=== PATIENT | male | born 1980 | race Caucasian/White ===

== ENCOUNTER 2019-08-12 13:03 | Inpatient (IN) ==
[2019-08-12 14:39] LABS: INFLUENZA A NEGATIVE (NEGATIVE); INFLUENZA B NEGATIVE (NEGATIVE)
[2019-08-12 15:17] LABS: URINE SOURCE CLEAN CATCH
[2019-08-12 15:18] LABS: ESTIMATED GFR 9
[2019-08-12 15:32] LABS: BILIRUBIN URINE NEGATIVE (NEGATIVE); BLOOD URINE SMALL (NEGATIVE); COLOR YELLOW; GLUCOSE URINE 100 mg/dL (NEGATIVE); KETONE URINE 10 mg/dL (NEGATIVE); LEUKOCYTES URINE NEGATIVE (NEGATIVE); NITRITE URINE NEGATIVE (NEGATIVE); PH URINE 6.5; PROTEIN URINE >600 mg/dL (NEGATIVE); SP GRAVITY URINE 1.017; TURBIDITY URINE HAZY (CLEAR); UR EPITHELIAL CELLS >10 /HPF (<10); URINE BACTERIA NEGATIVE /HPF; URINE WBC 20-40 /HPF (<10); UROBILINOGEN URINE NORMAL (NORMAL)
--- NOTE | 2019-08-12 15:36 | Diag Imaging Result Doc PS360 ---
EXAM: CHEST-PORTABLE INDICATION: Cough TECHNIQUE: One view COMPARISON: None. FINDINGS: The inspiration is suboptimal. No well-defined airspace consolidation is appreciated. There is no discrete pleural fluid collection or pneumothorax. There is cardiomegaly. There may be very mild pulmonary venous congestion. IMPRESSION: Poor inspiration, cardiomegaly, and possible mild pulmonary venous congestion. Electronically signed by Elias Garcia 08/12/2019 3:34 PM
[2019-08-12 16:02] LABS: BASO# 0.02 X1000 (0.0-0.2); BASO% 0.1 % (0.0-0.8); EOS# 0.08 X1000 (0.0-0.7); EOS% 0.2 % (0.0-10.0); HEMATOCRIT 24.6 % (42.0-52.0); IMM GRAN# 0.96 X1000 (0.0-0.04); LYMPH# 1.09 X1000 (1.2-3.4); LYMPH% 3.4 % (20.5-51.1); MCH 29.6 PG (27-31); MCHC 32.5 g/dL (33-37); MCV 91.1 FL (81-99); MONO# 0.62 X1000 (0.11-0.59); MONO% 1.9 % (1.7-9.3); MPV 8.3 FL (7.4-10.4); NEUT# 29.44 X1000 (1.4-6.5); NEUT% 91.4 % (42.2-75.2); PLT 227 X1000 (130-400); RDW 12.2 % (11.5-14.5); WBC 32.21 X1000 (4.8-10.8)
[2019-08-12 16:13] LABS: BANDS 1 % (0-1); LYMPHS 4 % (21-51); MONO 3 % (1-9); SEGS 92 % (42-75)
[2019-08-12 16:17] LABS: AGAP 18; ALKALINE PHOSPHATASE 120 U/L (32-122); BUN 93 mg/dL (8-22); CALCIUM 7.6 mg/dL (8.8-10.2); CHLORIDE 102 mmol/L (98-107); COSMO 299; CREATININE 6.6 mg/dL (0.7-1.2); GLUCOSE 128 mg/dL (70-104); GOT 34 U/L (10-34); GPT 30 U/L (10-44); LIPASE 20 U/L (13-60); POTASSIUM 5.1 mmol/L (3.5-5.1); SODIUM 134 mmol/L (136-145); TCO2 14 mmol/L (25-35); TOTAL BILIRUBIN < 0.15 mg/dL (0.20-1.00); TOTAL PROTEIN 4.9 g/dL (6.3-8.3)
[2019-08-12] MEDS ORDERED: LASIX 100 MG in NS 90 ML IV SCH ×3 (16:32→18:00)
[2019-08-12] MEDS ORDERED: ZOSYN 2.25 GM in NS 50 ML IV SCH ×2 (16:32→23:00)
[2019-08-12] MEDS ORDERED: APRESOLINE IV PRN ×2 (16:36→17:13)
[2019-08-12] MEDS ORDERED: LOPRESSOR IV SCH ×2 (16:45→17:15)
[2019-08-12] MEDS ORDERED: ZOFRAN IV PRN ×2 (16:47→17:16)
[2019-08-12] MEDS ORDERED: PRILOSEC PO SCH ×2 (16:47→17:30)
[2019-08-12 16:59] LABS: CHOLESTEROL 100 mg/dL (0-200); HDL 39 mg/dL (35-55); HEMOGLOBIN A1C 5.8 % (4.8-6.0); IRON SATURATION 13 %; LDL 43 mg/dL; TIBC 188 ug/dL; TOTAL IRON 24 ug/dL (53-167); TRIGLYCERIDES 90 mg/dL (39-160); UNBOUND IRON 164 ug/dL (112-346); VLDL 18 mg/dL
--- NOTE | 2019-08-12 17:23 | HISTORY AND PHYSICAL ---
PRIMARY CARE PHYSICIAN: None. HISTORY OF PRESENT ILLNESS: This is a 39-year-old, male, with past medical history of hypertension and diabetes who has not been any treatment for at least the year who presented to the emergency department complaining of flu-like symptoms. He does not report any sick people around. He also reports some fullness in the abdomen and nausea for a few days. He was feeling general malaise, body achiness. He reported today abdominal pain. He reports mild shortness of breath and also, he reports that he has been getting more swelling. As we mentioned before, he has history of hypertension, diabetes, but according to him he was not able to afford any of those medications, so he is not taking anything. Upon ER evaluation, he was found to have a blood pressure 212/116 with anasarca, so he is going to be admitted for further evaluation and treatment. PAST MEDICAL HISTORY: 1. 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 2. Diabetes mellitus type 2. 3. Uncontrolled hypertension. PAST SURGICAL HISTORY: Right jvyvi-fpn-qmro amputation. SOCIAL HISTORY: The patient lives alone. According to old records, he has a questionable remote history of psychiatric illness. He denies drinking alcohol, smoking tobacco, or using illicit drugs. ALLERGIES: No known drug allergies. HOME MEDICATION: None. FAMILY HISTORY: Noncontributory. REVIEW OF SYSTEMS: Eleven systems were reviewed and all symptoms are related to H P. PHYSICAL EXAMINATION: GENERAL: This is a chronically ill-looking, 36-year-old male, lying in bed, in no acute distress. HEENT: Head is normocephalic, atraumatic. Mucous membranes moist. Very pale conjunctivae. NECK: JVD noted. No carotid bruits. No lymphadenopathy. No thyromegaly. CARDIOVASCULAR: S1, S2 heard. No murmurs, gallops, or rubs. Regular rate and rhythm. RESPIRATORY EXAM: Crackles noted in both pulmonary bases. Patient is not using any accessory muscles or having work of breathing. ABDOMEN: Soft, nontender to palpation. Bowel sounds present. No organomegaly. EXTREMITIES: There is anasarca noted in both upper extremities. The left lower extremity with edema all over up to thigh and there is a right kzskg-mbb-gyzn amputation noted. Peripheral pulses present in the left leg, very faint. NEUROLOGICAL EXAM: Patient alert oriented x3. Moves 4 extremities. LABORATORY DATA: White cell count 32.21, hemoglobin 8.0, hematocrit 24.6, platelets 227,000 with sodium 134. Creatinine 6.6. Calcium 7.6 with proBNP greater than 35,000. Influenza A/B and group strep rapid negative. ASSESSMENT AND PLAN: 1. Abdominal pain. I am not quite sure about why this patient is hurting. The examination disclosed a benign exam. There are no signs of peritoneal irritation. At this point, I prefer to go ahead and do a CT of the chest, abdomen, and pelvis to find out the reason why this patient is septic. His white cell count is very elevated, so we are going to start empiric antibiotics with Zyvox and Zosyn renally dosed. Of course, we are going to consult Dr. Lopez from Nephrology tomorrow. We will provide furosemide drip for this patient for this anasarca. 2. Acute kidney injury. We have checked labs from previous visit for this patient. What we have in 2018 in May was a renal function of 1.3. Actually the renal function also was elevated at the time that he had this amputation and the highest that he reached was 1.9, but that returned to normal totally. So, I think at this point, we are going to do an ultrasound of the abdomen to check the kidneys. We will monitor in's and out's strictly. We will continue to monitor this patient closely. 3. Acute acute kidney injury. Creatinine is very elevated at 6.6, with very low glomerular filtration rate. At this point, we will consult Dr. Lopez from Nephrology. We will start Lasix drip on this patient. We will see how this patient does. 4. Uncontrolled hypertension. Blood pressure has been very elevated on this patient, 212. Apparently, he is depressed and was not interested in breathing any of his conditions either diabetes or hypertension at this point. We will place him on metoprolol 7.5 mg IV q.12 hours and p.r.n. hydralazine. We will continue to monitor this patient closely. 5. Uncontrolled diabetes mellitus. We will check hemoglobin A1c. We will provide insulin sliding scale before meals and also at bedtime. 6. Critical care time in this patient was 39 minute. The patient is going to be transferred to P[facility] unit in [facility]. cc: Mateo Dolan MD
--- NOTE | 2019-08-12 17:24 | Diag Imaging Result Doc PS360 ---
EXAM: CT THORAX/ABD/PELVIS W/O CON INDICATION: elevated WBC, no source of sepsis TECHNIQUE: This exam was performed using automated exposure control, adjustment of mA or kV according to patient size, and/or use of iterative reconstruction technique. COMPARISON: 06/02/2017 FINDINGS: CHEST: There are bilateral lower lobe airspace consolidations consistent with pneumonia, more prominent on the left. There are tree-in-bud opacities bilaterally indicating bronchiolitis. There is no pleural fluid collection and no pneumothorax. The heart appears borderline to mildly prominent but stable. There is no significant pleural effusion and no pneumothorax. Abdomen/pelvis: The liver, gallbladder, spleen, pancreas, adrenal glands, kidneys, and urinary bladder are grossly unremarkable as imaged with unenhanced CT. The appendix is not clearly identified but there is no secondary sign of appendicitis. There is severe body wall anasarca and there is a a fairly small amount of of ascites tracking around the liver, along the paracolic gutters, and in the pelvis. There is no evidence of acute osseous abnormality. IMPRESSION: 1.Bilateral lower lobe patchy airspace consolidation indicating pneumonia, worse on the left. 2.Cardiomegaly. 3.Severe body wall anasarca and small volume ascites. Electronically signed by Elias Garcia 08/12/2019 5:21 PM
[2019-08-12] MEDS: HEPARIN SUBQ SCH (17:51)
[2019-08-12] MEDS ORDERED: MORPHINE IV PRN (19:46)
[2019-08-12 20:11] LABS: INR 1.13; PROTIME 14.6 Seconds (11.0-16.0)
[2019-08-12 20:12] LABS: PTT 29.2 Seconds (22.3-41.8)
[2019-08-12] MEDS: LASIX 100 MG in NS 90 ML IV SCH (20:23)
[2019-08-12] MEDS: ZOFRAN IV PRN (20:24)
[2019-08-12 20:43] LABS: CK INDEX 7.7 (0.0-2.5); CK-MB 17.23 ng/mL (0.0-5.0)
[2019-08-12] MEDS: HUMALOG SUBQ SCH (20:54)
[2019-08-12] MEDS ORDERED: HUMALOG SUBQ SCH (21:00)
[2019-08-12] MEDS: APRESOLINE IV PRN (21:00)
[2019-08-12] MEDS: ZYVOX 600 MG/D5W 600 MG/300 ML IVPB IV SCH (22:07)
[2019-08-12] MEDS: ZOSYN 2.25 GM in NS 50 ML IV SCH (22:42)
[2019-08-12] MEDS: PHENERGAN IV PRN (23:15)
[2019-08-12] MEDS: SODIUM CHLORIDE 0.9% INJ PRN (23:15)
[2019-08-13] MEDS: HEPARIN SUBQ SCH ×2 (04:12→21:27)
[2019-08-13] MEDS: APRESOLINE IV PRN ×2 (04:12→10:48)
[2019-08-13] MEDS: ZOSYN 2.25 GM in NS 50 ML IV SCH ×4 (04:13→21:26)
[2019-08-13] MEDS: LASIX 100 MG in NS 90 ML IV SCH (05:20)
[2019-08-13] MEDS: SODIUM CHLORIDE 0.9% INJ PRN ×2 (05:38→10:12)
[2019-08-13] MEDS: PHENERGAN IV PRN ×2 (05:38→10:12)
[2019-08-13 05:57] LABS: ALLEN TEST YES; BE -10.5 mmoll (-3.0-3.0); BLOOD TYPE ARTERIAL; HCO3-(ACT) 16.7 mmoll (20.0-26.0); METHB 0.5 % (0.0-1.5); O2(CT) 19.3 mL/dL (15.0-23.0); O2HB 96.5 % (95.0-99.0); PCO2(98.6) 32 mmHg (35-45); PO2(98.6) 88 mmHg (60-100); SAMPLE BLOOD; SAO2 100.1 % (95.0-100.0); THB 14.2 g/dL (11.5-17.4); pH(98.6) 7.28 (7.35-7.45)
[2019-08-13 05:59] LABS: MODALITY CANNULA
[2019-08-13] MEDS: HUMALOG SUBQ SCH ×4 (06:23→21:34)
[2019-08-13 07:02] LABS: BASO# 0.03 X1000 (0.0-0.2); BASO% 0.1 % (0.0-0.8); HEMATOCRIT 27.3 % (42.0-52.0); HEMOGLOBIN 8.7 g/dL (14.0-18.0); IMM GRAN# 0.68 X1000 (0.0-0.04); IMM GRAN% 1.7 % (0.0-0.5); LYMPH# 1.52 X1000 (1.2-3.4); LYMPH% 3.7 % (20.5-51.1); MCH 29.4 PG (27-31); MCHC 31.9 g/dL (33-37); MCV 92.2 FL (81-99); MONO# 0.61 X1000 (0.11-0.59); MONO% 1.5 % (1.7-9.3); MPV 9.2 FL (7.4-10.4); NEUT# 38.36 X1000 (1.4-6.5); PLT 291 X1000 (130-400); RBC 2.96 XMIL (4.7-6.1); RDW 12.8 % (11.5-14.5)
[2019-08-13 07:30] LABS: ALBUMIN 2.1 g/dL (3.5-5.0); CALCIUM 7.7 mg/dL (8.8-10.2); MAGNESIUM 1.7 mg/dL (1.5-2.7); PHOSPHORUS 7.9 mg/dL (2.7-4.5); POTASSIUM 5.2 mmol/L (3.5-5.1)
[2019-08-13 08:20] LABS: BANDS 3 % (0-1); LYMPHS 10 % (21-51); MONO 1 % (1-9); SEGS 86 % (42-75)
[2019-08-13 08:21] LABS: ANISOCYTOSIS 1+
--- NOTE | 2019-08-13 08:58 | NEPHROLOGY CONSULTATION ---
DATE: 08/13/2019 REASON FOR CONSULTATION: Renal failure and volume overload. HISTORY OF PRESENT ILLNESS: Mr. Patel is a 39-year-old, white male with diabetes and hypertension, complicated by peripheral vascular disease and right BKA. He states he lives in the "[facility]," and he does not access medical care routinely. He does not take any medications for his diabetes or hypertension, stating that he has difficulty with acquisition because of finances. 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 He has been dealing with increasing swelling for many months. He ultimately came to the hospital because of nausea and vomiting and abdominal discomfort. These things have been present for several days, and he does have some tenderness in the epigastrium, as well as a sore throat. No chills, fevers, sweats, night sweats. He states he does have shortness of breath with any exertion. Mild shortness of breath just walking from one room to the other. No diarrhea. No voiding symptoms. To his knowledge, he does not have retinopathy. No heart disease. Again, untreated hypertension. PAST MEDICAL HISTORY: As above. MEDICATIONS: None. ALLERGIES: None. SOCIAL HISTORY: As above. No alcohol or tobacco. Lives alone. FAMILY HISTORY: Negative for kidney disease. REVIEW OF SYSTEMS: Noncontributory. PHYSICAL EXAMINATION: Vital Signs: Blood pressure 147/71, heart rate 93, respirations 20, afebrile. General: A somewhat disheveled, young man, but in no acute distress. Skin: Warm and dry. HEENT: Conjunctivae are pink and moist. Pupils are equal. Oropharynx is clear. Normal tongue. Poor dentition. Neck: Supple, and trachea is midline. Jugular venous distention and hepatojugular reflux are present. Heart: PMI is displaced and enlarged. Auscultation demonstrates a regular rhythm with S4 gallop. Lungs: Equal breath sounds. No crackles or wheezes. Abdomen: Soft and minimally tender in the epigastrium. No guarding or rebound. No organomegaly is palpable. No bruits. Extremities: There is 4+ edema extending up onto the forearms. Right BKA. Intact dorsalis pedis pulse on the left. Neurologic: Grossly nonfocal. IMPRESSION: Renal failure, most likely chronic and stage 5. He appears volume expanded based on edema and neck vein distention. Will aggressively treat with diuretic therapy. Quantify urine protein. Imaging. Observe renal function. Manage blood pressure and diabetes. I counseled the patient that he likely has end-stage kidney disease, for which renal replacement therapy may be necessary. Will follow with you. cc: Main Lopez MD
[2019-08-13] MEDS: ZYVOX 600 MG/D5W 600 MG/300 ML IVPB IV SCH ×2 (09:36→21:26)
[2019-08-13] MEDS: ZAROXOLYN PO SCH (10:08)
[2019-08-13] MEDS: LASIX IV SCH ×2 (10:08→21:26)
--- NOTE | 2019-08-13 10:24 | CARDIOLOGY CONSULTATION ---
DATE: 08/13/2019 CHIEF COMPLAINT ON PRESENTATION: Nausea, vomiting, recent onset of flu-like symptoms including cough, shortness of breath and myalgias. HISTORY OF PRESENT ILLNESS: Mr. Patel is a 39-year-old gentleman with a history of hypertension, diabetes, and a previous right BKA. Around a week ago, he reported he had flu- like symptoms with subjective fevers and chills and myalgias. The patient did not seek care for this. Subsequently over the last several days, he has had nausea and vomiting with difficulty keeping any solid food down, but he reports being able to tolerate liquids. He vomited twice during the course of my evaluation. The patient reports discomfort in his epigastric area that he describes as burning. He has no exertional component associated with this. He has no chest pain presently. PAST MEDICAL HISTORY: Significant for: 1. Diabetes. 2. Hypertension. 3. Right-sided BKA secondary to gas gangrene in 2016. SOCIAL HISTORY: No tobacco or alcohol. No illicit drugs. He lives alone. He is not aware of any recent sick contacts or any foreign travel. FAMILY HISTORY: Significant for hypertension. REVIEW OF SYSTEMS: A 10 system review of systems is negative, except for those things mentioned in the HPI. PHYSICAL EXAMINATION: Vital Signs: He is afebrile. His heart rate has been in the 80s to 90s more recently. Blood pressure 147/71. Generally: He is an ill-appearing white male in no acute distress. HEENT: Oropharynx is moist. He has poor dentition. His eye examination is pink conjunctivae, white sclerae. Neck: Examination shows no obvious thyromegaly or thyroid tenderness. Cardiovascular: He is in a regular rate and rhythm. I do not hear any obvious murmurs. He has no S3. Chest exam: Sounds relatively clear, but it was a difficult examination with the patient having a difficult time taking a deep breath, as well as poor examination with the isolation stethoscope. Abdomen: Soft, nontender. No obvious organomegaly. Skin: Exam is warm and dry throughout. No obvious rashes. Neurological: He is moving all extremities well. He has no lateralizing deficits. PERTINENT DATA: His white count is 32 on presentation. Presently it is 41. His hematocrit is 27. His platelet count is 291. He has a slight bandemia with a left shift. His pH is 7.28 with a pCO2 of 32, PO2 of 88 on an FiO2 of 28%. He has an AA gradient of 72. His sodium is 137, his potassium 5.2. His BUN and creatinine is 92 and 6.0; yesterday was 93 and 6.6. In May 2017 his creatinine was 1.3. His Mag level is 1.7, his ferritin is 642, his proBNP is greater than 35,000. His albumin level today is 2.1. His MB is 17.2 with an index of 7.7. His troponin has been flat and elevated with an initial check of 176 at 1952 hours yesterday, subsequent check of 179 at 0533 hours this morning. His TSH is 2.29. I do not have an EKG on the chart on the patient. ASSESSMENT: Mr. Patel is a 39-year-old gentleman, who presented with the above- listed symptoms, elevated white count, flu-like symptoms occurring within the last week, shortness of breath, bilateral infiltrates, new onset renal failure, minimal flat elevations in his troponin. PLAN: At this point, we will review his echo, check an EKG. He has been administered diuretics by Nephrology. COVID-19 testing is pending. At this point, I would not recommend an ischemic evaluation until all testing is back. Most likely the troponin elevation is related to his renal insufficiency and volume overload as well as possible ongoing sepsis. Again, we will follow up on his testing, his echocardiogram and check an EKG. cc: William Edmondson MD MTDD
--- NOTE | 2019-08-13 10:34 | EKG Report ---
Test Performed on : 08/13/2019 10:27:32 AM Test Reason : troponin elevation Blood Pressure : / mmHG Vent. Rate : 102 BPM Atrial Rate : 102 BPM P-R Int : 152 ms QRS Dur : 094 ms QT Int : 350 ms P-R-T Axes : 049 -08 054 degrees QTc Int : 456 ms Sinus tachycardia. Possible Left atrial enlargement Nonspecific ST abnormality Abnormal ECG When compared with ECG of 11-NOV-2015 17:57, Non-specific change in ST segment in Anterior leads Confirmed by Adal Soto MD ([id number]) on 08/14/2019 2:50:48 PM
--- NOTE | 2019-08-13 10:52 | SEPSIS: TISSUE PERFUSION ASSMT ---
Sepsis: Tissue Perfusion Assmt - Physical Exam Assessment Date: 08/13/19 Time Assessment Initialized: 10:45 Vital Signs: Last Vital Signs Temp 97.5 F L 08/13/19 08:00 Pulse 93 H 08/13/19 08:00 Resp 20 08/13/19 08:00 BP 147/71 08/13/19 08:00 Pulse Ox 98 08/13/19 08:46 Height 5 ft 10 in Weight 102.285 kg Lung Sounds: crackles Heart Sounds: Regular Capillary Refill Time: Less Than 2 Seconds Peripheral Pulse Evaluation: radial (R): 2+, radial (L): 2+, dorsalis-pedis (R): 0, dorsalis-pedis (L): 2+, posterior tibialis (R): 0, posterior tibialis (L): 2+ Skin Exam: pink - Alternative Fluid Bolus Bolus Option: Alternative Fluid Resuscitation Bolus for morbidly obese patients with a BMI >30, Refer to [facility] [place] Body Weight Chart for Reference. Is patient's BMI >30?: No Fluid Bolus dosed using the [place] Body Weight Chart: No - Impression Impression: Tissue Perfusion Adequate (Patient has right below knee amputation. He is in volume overload. So bolus not given.)
--- NOTE | 2019-08-13 11:19 | PROGRESS NOTE ---
DATE: 08/13/2019 INTERVAL HISTORY: Mr. Patel was transferred to isolation room for suspected COVID-19. COVID-19 testing has already been ordered by Cardiology team. SUBJECTIVE: Mr. Patel is complaining of chest discomfort, which is located in the center of the chest, upper abdomen region, which is burning like. He continues to have vomiting, occasional cough. He denies abdominal pain as such. REVIEW OF SYSTEMS: Positive for vomiting. Positive for nausea. Positive for epigastric/lower chest region discomfort. Positive for low appetite. OBJECTIVE: Vital Signs: Temperature of 97.5 degrees, pulse 93, respiratory rate 20, blood pressure 147/71, saturating 100% on nasal cannula. General: He does not appear in acute distress. HEENT: Oral cavity is dry. There is conjunctival pallor. No cyanosis, clubbing, or icterus. Lungs: Air entry bilaterally equal. No wheeze or rhonchi. He has crackles to bilateral infrascapular region. Cardiovascular: S1, S2 normal. No murmur or gallop. Abdomen: Soft. Mild epigastric discomfort. Otherwise nontender. No hepatosplenomegaly. He has ascites in bilateral flanks. Active bowel sounds. Extremities: He has left lower extremity edema, extending up to knee level. He has a right below-knee amputation, and there is a superficial ulcer over the stump, about 2.5 cm diameter. LABORATORY DATA: WBC 41,000, hemoglobin 8.7, platelets 291,000. He has mild metabolic acidosis with mild elevation of anion gap. He also has low bicarbonate. MICROBIOLOGY: No new data so far. ASSESSMENT AND PLAN: 1. Sepsis due to bilateral lower lobe pneumonia with history of methicillin-resistant staphylococcus aureus and Acinetobacter wound infection. Continue intravenous linezolid and intravenous Zosyn. Follow up sputum culture, urine streptococcal antigen, and blood culture results. Due to suspicion of Coronavirus Disease 2019, Coronavirus Disease 2019 testing has been ordered by Cardiology team. I will keep the patient on airborne and contact isolation precautions. 2. Acute kidney injury with volume overload leading to anasarca and ascites. Continue intravenous Lasix as per Nephrology recommendation. His current kidney dysfunction could be related to hypertensive emergency. He could also have chronic kidney disease due to uncontrolled hypertension, for which he was not compliant with treatment. He is also on oral metolazone. Follow up ultrasound renal, retroperitoneal. 3. Hypertensive emergency, likely because of not being able to take blood pressure medications due to cost issues, as well as noncompliance. Cardiology team on board. His troponin has been showing flat trend. Will follow up with echocardiogram results. I will start him on intravenous antihypertensive medications. I will keep him on intravenous hydralazine as needed. Currently, blood pressure is well controlled. 4. History of diabetes mellitus. His hemoglobin A1c is normal, which could also be falsely normal in the setting of chronic kidney disease. I will keep his blood sugar in check with sliding scale insulin. 5. Normocytic anemia. I will follow up with iron panel. He does not have any acute need for transfusion. 6. Disposition. 35 minutes have been spent in taking care of this patient. Plan of care was extensively discussed with him. He asked me if he had cholecystitis. However, on my examination, his Pierre's sign was negative, and CT scan of the abdomen and pelvis did not detect any gallbladder abnormality. cc: Hudson Perez MD
[2019-08-13 14:22] LABS: UR CREAT RANDOM 47.2 mg/dL (14-26)
[2019-08-14] MEDS: ZOSYN 2.25 GM in NS 50 ML IV SCH ×5 (00:04→21:03)
--- NOTE | 2019-08-14 00:15 | ECHO REPORT ---
ORDER DATE: 08/12/2019 MEASUREMENTS: Septal thickness 1.3, left ventricular internal diameter in diastole 5.9, posterior wall thickness 1.3. Aortic root 3.7, left atrium 4.7. SUMMARY: 1. Adequate quality study. 2. Aortic valve is trileaflet and opens normally on 2-dimensional images. Peak gradient across the aortic valve is less than 10 mmHg. Mitral, tricuspid, and pulmonic valves are without evidence of structural abnormality. There is trace mitral regurgitation. The aortic root is normal in size. 3. Borderline left ventricular enlargement with mild concentric left hypertrophy is demonstrated. Estimated ejection fraction approximately 55%. No focal wall motion abnormality can be appreciated. Left atrium is iovy-cj-mzxmscazik enlarged. The right atrium and right ventricle are normal size with normal right ventricular systolic function. 4. No pericardial effusion. 5. Appearance of inferior vena cava suggests normal central venous pressure. CONCLUSIONS: 1. No significant valvular abnormality. 2. Borderline left ventricular enlargement with mild concentric left hypertrophy and estimated left ejection fraction approximately 55%. 3. Mild to moderate left atrial enlargement. cc: MD Mateo Mistry MD
[2019-08-14] MEDS: APRESOLINE IV PRN ×2 (05:45→11:11)
[2019-08-14] MEDS: HUMALOG SUBQ SCH ×4 (06:23→21:55)
[2019-08-14 07:21] LABS: BASO# 0.01 X1000 (0.0-0.2); EOS# 0.04 X1000 (0.0-0.7); EOS% 0.1 % (0.0-10.0); HEMATOCRIT 23.9 % (42.0-52.0); HEMOGLOBIN 7.6 g/dL (14.0-18.0); IMM GRAN# 0.19 X1000 (0.0-0.04); IMM GRAN% 0.6 % (0.0-0.5); LYMPH# 0.94 X1000 (1.2-3.4); LYMPH% 2.9 % (20.5-51.1); MCH 29.2 PG (27-31); MCHC 31.8 g/dL (33-37); MCV 91.9 FL (81-99); MONO# 0.61 X1000 (0.11-0.59); MONO% 1.9 % (1.7-9.3); MPV 8.8 FL (7.4-10.4); NEUT% 94.5 % (42.2-75.2); PLT 259 X1000 (130-400); RDW 12.7 % (11.5-14.5); WBC 31.89 X1000 (4.8-10.8)
[2019-08-14 07:34] LABS: ALBUMIN 1.6 g/dL (3.5-5.0); CALCIUM 7.6 mg/dL (8.8-10.2); CREATININE 6.6 mg/dL (0.7-1.2); MAGNESIUM 1.7 mg/dL (1.5-2.7); PHOSPHORUS 7.9 mg/dL (2.7-4.5); POTASSIUM 4.2 mmol/L (3.5-5.1)
[2019-08-14 07:38] LABS: LYMPHS 5 % (21-51); MONO 1 % (1-9); SEGS 94 % (42-75)
[2019-08-14 07:48] LABS: FERRITIN 595 ng/mL (30-400)
[2019-08-14] MEDS: ZAROXOLYN PO SCH (08:47)
[2019-08-14] MEDS: HEPARIN SUBQ SCH ×2 (08:47→21:03)
[2019-08-14] MEDS: LASIX IV SCH ×2 (08:47→21:03)
[2019-08-14] MEDS: ZYVOX 600 MG/D5W 600 MG/300 ML IVPB IV SCH ×2 (09:10→21:03)
[2019-08-14] MEDS: PHENERGAN IV PRN ×2 (09:17→16:18)
[2019-08-14] MEDS: ZOFRAN IV PRN (11:04)
[2019-08-14] MEDS: ALBUMIN 25% IV SCH (11:33)
[2019-08-14 12:22] LABS: C REACTIVE PROT QUANT 16.45 mg/L (0.00-5.00)
[2019-08-14 12:30] LABS: CALCIUM 7.4 mg/dL (8.8-10.2)
--- NOTE | 2019-08-14 13:01 | PROGRESS NOTE ---
DATE: 08/14/2019 SUBJECTIVE: This morning Mr. Patel refers to be doing well. Denies any new complaints. Still remarkably volume overloaded with some shortness of breath and he is still coughing. OBJECTIVE: Vital Signs: Blood pressure is 176/78, pulse of 100, respirations 16, temperature is 98.1 degrees. The patient is saturating 97% on room air. General: Mr. Patel is a 39-year-old gentleman. He is in bed, in no distress. Mucosa is pink and moist. Anicteric. Acyanotic. Neck: Supple. Chest: Air entry is bilaterally reduced. There are still some crackles bilaterally in the posterior lung mac. Cardiovascular: Regular rate and rhythm. There are no murmurs. No rubs, no gallops. Gastrointestinal: The abdomen is soft, is distended, but nontender. There is some edema on the lateral aspect of the abdominal wall laterally. Extremities: The patient has a prosthetic limb on the right with a BKA. The left lower extremity has about 3+ pedal edema. Input and Output: The patient's input and output, urine output was 1500. He is currently negative balance of 127. LABORATORY DATA: WBC is up to 31.89, hemoglobin is 7.6, platelet count of 259,000. Chemistry is also reviewed. Sodium is 133, potassium is 4.5, bicarbonate of 15, creatinine is 6.6. C-reactive protein is slightly elevated, but not terrible. Troponins are elevated. The patient denies any chest pain at this point. IMAGING STUDIES: Have all been reviewed. ASSESSMENT AND PLAN: 1. Fluid overload, most likely due to a combination of renal failure and congestive heart failure with preserved ejection fraction. 2. Renal failure, most likely stage 5 from longstanding uncontrolled hypertension and diabetes mellitus. 3. Significant proteinuria, presumably with suspicion of nephrotic range proteinuria. We will get a 24-hour urine to determine both ejection fraction as well as renal protein excretion. 4. Hypertensive emergency. Patient is on medications. We will continue to titrate. 5. Diabetes mellitus. 6. Normocytic anemia, most likely from longstanding renal disease. 7. Mild gap metabolic acidosis, most likely related to the degree of the renal failure. 8. Elevated troponins and elevated pro-BNP concerning for possible cardiopathy in the setting of longstanding renal failure. Cardiology has been consulted. 9. Bilateral lower lobe infiltrates in the setting of flu-like symptoms. There is concern for Coronavirus Disease 2019. We are still waiting on the result. Patient continues to be in isolation. cc: Lennox Doan MD
--- NOTE | 2019-08-14 17:53 | NEPHROLOGY PROGRESS NOTE ---
DATE: 08/14/2019 SUBJECTIVE: He was moved to isolation because of the abnormal CT and history of fever. He is still coughing some though not in my presence. OBJECTIVE: Vital Signs: Blood pressure 170/81, heart rate 98, respirations 16, afebrile. General: No acute distress. Skin: Warm and dry. Neck: Neck veins are distended. Trachea is midline. Heart: Regular with a gallop. Lungs: Equal. No crackles. Abdomen: Soft, nontender. Extremities: Have 3+ edema. No clubbing or cyanosis. IMPRESSION: 1. Volume overload. Complex of proteinuria, diastolic heart failure, stage 5 chronic kidney disease. I will add albumin to his furosemide and metolazone and observe his response over the next 48 hours. If he fails this therapy, then we will have to consider renal replacement therapy. Unfortunately, he has very limited resources, which will make it difficult for him to be a compliant dialysis patient. I will begin binder therapy and sodium bicarbonate. By our standards, he is iron deficient, so I will treat that. cc: Main Lopez MD
[2019-08-14] MEDS: SODIUM BICARBONATE PO SCH (23:31)
[2019-08-15] MEDS: ZOSYN 2.25 GM in NS 50 ML IV SCH ×4 (04:16→21:44)
[2019-08-15] MEDS: HUMALOG SUBQ SCH ×4 (07:38→21:45)
[2019-08-15 08:39] LABS: BASO# 0.01 X1000 (0.0-0.2); BASO% 0.1 % (0.0-0.8); EOS# 0.07 X1000 (0.0-0.7); EOS% 0.4 % (0.0-10.0); HEMATOCRIT 22.3 % (42.0-52.0); IMM GRAN# 0.07 X1000 (0.0-0.04); IMM GRAN% 0.4 % (0.0-0.5); LYMPH# 1.17 X1000 (1.2-3.4); MCH 28.6 PG (27-31); MCHC 31.4 g/dL (33-37); MONO# 0.52 X1000 (0.11-0.59); MONO% 3.1 % (1.7-9.3); NEUT# 14.89 X1000 (1.4-6.5); PLT 237 X1000 (130-400); RBC 2.45 XMIL (4.7-6.1); RDW 12.8 % (11.5-14.5); WBC 16.73 X1000 (4.8-10.8)
[2019-08-15] MEDS ORDERED: NS 500 ML IV ONE ×2 (08:46→08:47)
[2019-08-15 08:55] LABS: EOS 1 % (1-10); LYMPHS 6 % (21-51); MONO 2 % (1-9); SEGS 91 % (42-75)
[2019-08-15 08:56] LABS: LARGE PLATELETS OCCASIONAL; SCHISTOCYTES OCCASIONAL
[2019-08-15 09:06] LABS: CALCIUM 7.3 mg/dL (8.8-10.2); CREATININE 6.3 mg/dL (0.7-1.2); MAGNESIUM 1.7 mg/dL (1.5-2.7); PHOSPHORUS 8.4 mg/dL (2.7-4.5)
[2019-08-15] MEDS: ZAROXOLYN PO SCH (09:43)
[2019-08-15] MEDS: HEPARIN SUBQ SCH ×2 (09:43→21:44)
[2019-08-15] MEDS: SODIUM BICARBONATE PO SCH ×2 (09:43→21:44)
[2019-08-15] MEDS: LASIX IV SCH (09:48)
[2019-08-15] MEDS: ALBUMIN 25% IV SCH (09:49)
[2019-08-15] MEDS: ZYVOX 600 MG/D5W 600 MG/300 ML IVPB IV SCH ×2 (09:53→21:44)
[2019-08-15] MEDS: APRESOLINE IV PRN ×2 (10:04→14:16)
--- NOTE | 2019-08-15 11:43 | PROGRESS NOTE ---
DATE: 08/15/2019 SUBJECTIVE: I have seen and examined Mr. Patel today. Mr. Patel refers to be doing fair. No new complaints. OBJECTIVE: Current vitals: Blood pressure is 183/81, pulse of 90, respirations 18, temperature 98.1 degrees. General: Mr. Patel is a 39-year-old gentleman. He is in bed. He is not in any cardiopulmonary distress. HEENT: Mucosa is pink and moist. Anicteric. Acyanotic. Neck: Supple. Still positive JVD. Chest: Air entry is bilaterally reduced. There are some diffuse wet crackles in the posterior lung mac. Cardiovascular: Regular rate and rhythm. No murmurs, no rubs, no gallops. GI: The abdomen is soft, it is distended. There is edema on the lateral aspect of the abdominal wall. Extremities: The patient has a BKA on the right. The left has 3+ pedal edema. DRUM CLEANER: The patient is awake, alert, follows commands. INS AND OUTS: Urine output was 3,150, currently negative balance of 1,697. LABORATORY DATA: Laboratory data has also been reviewed. WBC is down to 16.73, hemoglobin is down to 7.0, platelet count of 237,000, no bands on the peripheral smear. Chemistry is also reviewed with fairly stable numbers, with a creatinine of 6.3. MEDICATIONS: Medications have all been reviewed. No changes to the current regimen. ASSESSMENT: 1. Fluid overload, most likely due to renal failure compounded with possible congestive heart failure with preserved ejection fraction. The patient continues to be on a diuretic regimen. 2. Renal failure, presumably CKD stage 5, from long-standing uncontrolled diabetes mellitus and hypertension. 3. Significant proteinuria, suspicious for nephrotic range proteinuria from diabetic nephropathy. The patient is going through a 24-hour urine collection for quantification purposes. 4. Hypertensive emergency. The patient is on medication. We will continue to titrate. Blood pressure levels are trending down. 5. Diabetes mellitus. Continue with insulin regimen. 6. Normocytic anemia due to chronic disease. The patient's hemoglobin has gone down to 7. We are going to group and crossmatch and transfuse him a unit of PRBC. His iron studies have already been checked and they all seem to be within normal range. 7. Mild metabolic acidosis secondary to renal failure. 8. Elevated troponins and BNP concerning for underlying cardiomyopathy in the setting of longstanding renal failure. Cardiology is on board. 9. Bilateral lower lobe infiltrate in the setting of flu-like symptoms. This is concerning for COVID-19. We are still pending the laboratory tests. The patient is on antimicrobial coverage for now. PLAN: In general, Mr. Patel is fairly stable. We will continue with the current antimicrobial coverage. We will get him in a unit of PRBC transfusion. We are pending the results for the 24- hour urine collection, and will follow up with further recommendations from the subspecialties involved. The patient is still on large doses of diuretic therapy. cc: Lennox Doan MD Addendum: COVID-19 test reported negative. Discontinue isolation. Continue with rest of management. MTDD
[2019-08-15 11:52] LABS: ANTINEUTROPHIL CYTOPLASMIC AB SEE COMMENTS
[2019-08-15 12:43] LABS: UR CREATININE 29.8 mg/dL (14-26)
[2019-08-15 12:53] LABS: UR PROTEIN 295.5 mg/dL
[2019-08-15 12:55] LABS: CREATININE 6.3 mg/dL (0.7-1.2)
[2019-08-15] MEDS: PHENERGAN IV PRN (13:35)
[2019-08-15] MEDS ORDERED: KLOR-CON PO ONE (17:18)
--- NOTE | 2019-08-15 18:38 | NEPHROLOGY PROGRESS NOTE ---
DATE: 08/15/2019 SUBJECTIVE: He is lying in bed. Still having nausea, vomiting, and diarrhea. Questionable melena. Urine output has been improved. OBJECTIVE: Vital Signs: Blood pressure 177/78, heart rate 89, respirations 16, afebrile. Intake 1.6 L. Output 3.2 L. General: No acute distress. Skin: Warm and dry. Neck: Neck veins are distended. Heart: Regular with a murmur. Lungs: Equal. No crackles. Abdomen: Soft, nontender. Bowel sounds are present. Extremities: There is 3+ edema. No clubbing or cyanosis. IMPRESSION: Chronic kidney disease stage 5. Likely will require dialysis. No acute indications for dialysis, however. He is responding well to diuretics plus albumin. We will continue this therapy. cc: Main Lopez MD
[2019-08-15] MEDS: LASIX 200 MG in NS 25 ML IV SCH (21:44)
[2019-08-16] MEDS: ZOSYN 2.25 GM in NS 50 ML IV SCH ×4 (03:59→21:32)
[2019-08-16] MEDS: HUMALOG SUBQ SCH ×4 (06:13→20:46)
[2019-08-16 06:29] LABS: HEMATOCRIT 22.5 % (42.0-52.0); HEMOGLOBIN 7.4 g/dL (14.0-18.0); MCH 29.8 PG (27-31); MCHC 32.9 g/dL (33-37); MCV 90.7 FL (81-99); MPV 8.8 FL (7.4-10.4); RBC 2.48 XMIL (4.7-6.1); RDW 12.7 % (11.5-14.5); WBC 17.33 X1000 (4.8-10.8)
[2019-08-16 07:29] LABS: ALBUMIN 2.4 g/dL (3.5-5.0); CREATININE 6.8 mg/dL (0.7-1.2); PHOSPHORUS 7.3 mg/dL (2.7-4.5); POTASSIUM 2.8 mmol/L (3.5-5.1)
[2019-08-16 07:45] LABS: CALCIUM 6.6 mg/dL (8.8-10.2)
[2019-08-16] MEDS ORDERED: ZOSYN ONE (08:14)
[2019-08-16] MEDS: ALBUMIN 25% IV SCH (08:50)
[2019-08-16] MEDS: COREG PO SCH ×2 (08:51→20:46)
[2019-08-16] MEDS: SODIUM BICARBONATE PO SCH ×2 (08:51→20:46)
[2019-08-16] MEDS: HEPARIN SUBQ SCH ×2 (08:51→20:46)
[2019-08-16] MEDS: APRESOLINE PO SCH ×3 (08:51→20:46)
[2019-08-16] MEDS: ZAROXOLYN PO SCH (08:51)
[2019-08-16] MEDS: NORVASC PO SCH ×2 (08:51→20:46)
[2019-08-16] MEDS: ZYVOX 600 MG/D5W 600 MG/300 ML IVPB IV SCH ×2 (10:12→21:32)
[2019-08-16] MEDS: LASIX 200 MG in NS 25 ML IV SCH ×2 (10:12→20:46)
--- NOTE | 2019-08-16 10:21 | PROGRESS NOTE ---
DATE: 08/16/2019 SUBJECTIVE: This morning Mr. Patel refers to be doing well. No new complaints. He denies any nausea or vomiting, no chest pain, and he said his breathing is better. OBJECTIVE: Vital Signs: Blood pressure is still 191/91, pulse of 98, respiration is 12, temperature is 98.6 degrees. The patient is saturating 97% on room air. General: Mr. Patel is a 39-year-old gentleman. He is in bed, no cardiopulmonary distress. HEENT: Mucosa is pink and moist. Anicteric. Acyanotic. Neck: Supple. Mild JVD. There is also a right EJ in place. Respiratory System: Air entry was bilaterally reduced. There are still diffuse wet crackles in the posterior lung mac. Cardiovascular: Regular rate and rhythm. No murmurs, no rubs, no gallops. Gastrointestinal: The abdomen is soft, it is distended. There is edema on the lateral aspect of the abdominal wall. There is Hopkins catheter in place. Scrotum is also swollen. Extremities: There is a right BKA. Left lower extremity has 3+ pedal edema. Central Nervous System: Patient is awake, alert, and oriented. LABORATORY DATA: WBC is 17.33, hemoglobin is 7.4, platelet count of 194,000. Chemistry is also reviewed. Creatinine is 6.8. Input and output, urine output was 3075. The patient is currently negative balance of 4437. The patient current weight is 217. He was 225 on the , so he has lost about 8 pounds during the hospital course. The 24 urine sampling did show a creatinine clearance of 13. The patient has a total protein 24 hour urine clearance excretion of 11gm, so extremely nephrotic. CURRENT MEDICATIONS: Have all been reviewed. He continues to be on Lasix to 200 mg IV every 12 hours, metolazone 10 mg p.o. daily, Zosyn 2.25 every 6 hours and today is day 4. Albumin has been discontinued. ASSESSMENT: 1. Fluid overload secondary to combination of renal failure, congestive heart failure with preserved ejection fraction and nephrotic syndrome. The patient continues to be on diuretic therapy. 2. Chronic kidney disease stage 5. The patient continues to be fairly stable on medical management. We will continue to follow further recommendations from Nephrology. 3. Nephrotic range proteinuria, presumably from diabetic nephropathy. Currently patient is not on any LINA or ARBs. We have started him on amlodipine, which will also provide some form of renal protection. We will defer the initiation of ARB or LINA to Nephrology. 4. Hypertensive emergency on admission. The patient is fairly stable. Blood pressure continues to be high. We started him this morning on carvedilol and amlodipine on top of the hydralazine for better blood pressure control. 5. Diabetes mellitus, stable. 6. Anemia of chronic disease. The patient is status post 1 packed red blood cell transfusion yesterday. Hemoglobin just barely went up to 7.3. We are pending a stool sample for occult blood testing. If that is positive, we will surely engage gastrointestinal as well. For now, Mr. Patel does not seems to show any obvious sign of ongoing gastrointestinal blood loss. 7. Mild metabolic acidosis secondary to renal failure. The patient is on bicarbonate therapy. 8. Elevated troponin and BNP concerning for underlying cardiomyopathy in the setting of longstanding renal failure. The patient also has multiple core comorbidities and risk factors for heart disease. Cardiology is on board. 9. Bilateral lower lobe infiltrate. The patient's Coronavirus Disease 2019 testing was negative. He is being treated for possible bacterial pneumonia. We will continue with the current antimicrobial coverage. SUMMARY: So in general, I think Mr. Patel is fairly stable. He is hemodynamically stable. Blood pressures are still high. We started him on medications and continue to titrate these. We are going to transfer him from the Critical Care Unit to the renal floor and continue with his management. cc: MD DENIS Menjivar
--- NOTE | 2019-08-16 13:54 | NEPHROLOGY PROGRESS NOTE ---
DATE: 08/16/2019 SUBJECTIVE: He is sitting up in the bed. Still states he does not feel well. Swelling is improving, however. OBJECTIVE: Vital Signs: Blood pressure 169/83, heart rate 86, respirations 16, afebrile. Intake 1.2 L. Output 4 L. General: In no distress. Extremities: 2+ edema. IMPRESSION: 1. Chronic kidney disease stage 5. Little change thus far. Likely uremic but we are attempting to manage his volume status before making a decision about uremia management. 2. Volume overload. Improving with diuretics and albumin. We will continue this regimen. cc: Main Lopez MD
[2019-08-17] MEDS: ZOSYN 2.25 GM in NS 50 ML IV SCH ×4 (04:48→21:03)
[2019-08-17] MEDS: APRESOLINE PO SCH ×3 (04:48→21:02)
[2019-08-17 05:09] LABS: HEMOGLOBIN 7.3 g/dL (14.0-18.0); MCH 30.4 PG (27-31); MCHC 33.2 g/dL (33-37); MCV 91.7 FL (81-99); MPV 9.2 FL (7.4-10.4); RBC 2.4 XMIL (4.7-6.1); RDW 12.7 % (11.5-14.5); WBC 14.92 X1000 (4.8-10.8)
[2019-08-17 05:38] LABS: ALBUMIN 2.5 g/dL (3.5-5.0); CALCIUM 6.8 mg/dL (8.8-10.2); CREATININE 6.6 mg/dL (0.7-1.2); PHOSPHORUS 7.2 mg/dL (2.7-4.5); POTASSIUM 2.5 mmol/L (3.5-5.1)
[2019-08-17] MEDS ORDERED: KLOR-CON PO ONE ×2 (05:51→08:30)
[2019-08-17] MEDS: HUMALOG SUBQ SCH ×4 (06:02→21:59)
[2019-08-17] MEDS: COREG PO SCH ×2 (08:38→21:01)
[2019-08-17] MEDS: ALBUMIN 25% IV SCH (08:38)
[2019-08-17] MEDS: SODIUM BICARBONATE PO SCH ×2 (08:38→21:02)
[2019-08-17] MEDS: NORVASC PO SCH ×2 (08:38→21:02)
[2019-08-17] MEDS: HEPARIN SUBQ SCH ×2 (08:38→21:01)
[2019-08-17] MEDS: ZAROXOLYN PO SCH (08:38)
[2019-08-17] MEDS: LASIX 200 MG in NS 25 ML IV SCH (10:11)
[2019-08-17] MEDS: ZYVOX 600 MG/D5W 600 MG/300 ML IVPB IV SCH ×2 (11:25→22:04)
--- NOTE | 2019-08-17 17:04 | NEPHROLOGY PROGRESS NOTE ---
DATE: 08/17/2019 SUBJECTIVE: He states he is better. He is walking around, no shortness of breath, eating more, less nausea. OBJECTIVE: Vital Signs: Blood pressure 150/69, heart rate 80, respirations 16 afebrile. General: No acute distress. Skin: Warm and dry. Heart: Regular. No rubs. Lungs: Equal. No crackles. Abdomen: Benign. Extremities: 2+ edema but none in the arms now. IMPRESSION: Volume overload. Much better. I will change furosemide to 80 mg p.o. b.i.d. and decrease metolazone to 5 mg. His potassium has been replaced. Observe. cc: Main Lopez MD
--- NOTE | 2019-08-17 17:38 | PROGRESS NOTE ---
DATE: 08/17/2019 I have seen and examined Mr. Patel today, Mr. refers to be doing well, denies any new acute process going on. He said the swelling is coming down. His blood pressure is also better controlled. OBJECTIVE: Vitals: Blood pressure is 150/69, pulse of 80, respiration is 16, temperature 98.4 degrees. General: Mr. Patel is a 39-year-old gentleman he is in bed no distress. Mucosa is pink and moist. Anicteric. Acyanotic. Neck: Supple. I did not see any JVD today. There is a right EJ still in place. Respiratory: Air entry was bilateral reduced, there are still a few crackles. Cardiovascular: Regular rate and rhythm. No murmurs. Abdomen: Soft. Minimal edema on the lateral aspect of the abdominal wall. Hopkins catheter still in place and scrotum is still swollen. Extremities: There is a right BKA. The left lower extremity has about 2+ pedal edema. MATERIAL YARD CLERK: Patient is awake, alert, oriented. LABORATORY DATA: Urine output was 2900 over 24 hour period yesterday, patient is currently negative balance of 6321. CURRENT MEDICATIONS: Have all been reviewed. He has been switched to p.o. Lasix. ASSESSMENT: 1. Anasarca secondary to combination of renal failure, congestive heart failure with preserved ejection fraction and nephrotic syndrome. Patient continues to be on diuretic therapy. This has been switched to p.o. 2. Chronic kidney disease stage 5. Will continue with medical management. 3. Nephrotic range proteinuria presumably from diabetic nephropathy. 4. Hypertensive urgency on admission improved. 5. Diabetes mellitus controlled on diet. 6. Anemia of chronic disease. Patient is status post 1 packed red blood cell transfusion. 7. Mild metabolic acidosis secondary to renal failure. So in general today we are going to discontinue the Hopkins catheter. We are going to continue with the current management and we are going to transfer Mr. Patel from the Critical Care Unit to the renal floor. cc: Lennox Doan MD [facility]
[2019-08-17] MEDS ORDERED: LASIX PO SCH (21:00)
[2019-08-18] MEDS: ZOSYN 2.25 GM in NS 50 ML IV SCH ×4 (03:35→22:29)
[2019-08-18] MEDS: APRESOLINE PO SCH ×3 (04:52→20:42)
[2019-08-18] MEDS: HUMALOG SUBQ SCH ×5 (06:04→20:47)
[2019-08-18 07:10] LABS: BASO# 0.04 X1000 (0.0-0.2); BASO% 0.3 % (0.0-0.8); EOS# 0.34 X1000 (0.0-0.7); EOS% 2.5 % (0.0-10.0); HEMATOCRIT 22.1 % (42.0-52.0); IMM GRAN# 0.03 X1000 (0.0-0.04); IMM GRAN% 0.2 % (0.0-0.5); LYMPH# 1.02 X1000 (1.2-3.4); LYMPH% 7.4 % (20.5-51.1); MCH 28.7 PG (27-31); MCHC 31.7 g/dL (33-37); MCV 90.6 FL (81-99); MONO# 0.66 X1000 (0.11-0.59); MONO% 4.8 % (1.7-9.3); MPV 8.7 FL (7.4-10.4); NEUT# 11.65 X1000 (1.4-6.5); NEUT% 84.8 % (42.2-75.2); PLT 192 X1000 (130-400); RBC 2.44 XMIL (4.7-6.1); RDW 12.6 % (11.5-14.5); WBC 13.74 X1000 (4.8-10.8)
[2019-08-18 07:26] LABS: ALBUMIN 2.4 g/dL (3.5-5.0); CREATININE 7.3 mg/dL (0.7-1.2); PHOSPHORUS 7.5 mg/dL (2.7-4.5); POTASSIUM 2.9 mmol/L (3.5-5.1)
[2019-08-18 07:45] LABS: CALCIUM 6.4 mg/dL (8.8-10.2)
[2019-08-18] MEDS ORDERED: KLOR-CON PO ONE (08:43)
[2019-08-18] MEDS ORDERED: NS 500 ML IV ONE (08:44)
[2019-08-18] MEDS ORDERED: ZAROXOLYN PO SCH (09:00)
[2019-08-18] MEDS: ALBUMIN 25% IV SCH (10:18)
[2019-08-18] MEDS: NORVASC PO SCH ×2 (10:19→20:43)
[2019-08-18] MEDS: SODIUM BICARBONATE PO SCH ×2 (10:19→20:43)
[2019-08-18] MEDS: HEPARIN SUBQ SCH ×2 (10:19→20:43)
[2019-08-18] MEDS: COREG PO SCH ×2 (10:19→20:42)
[2019-08-18] MEDS: ZYVOX 600 MG/D5W 600 MG/300 ML IVPB IV SCH ×2 (11:47→22:29)
--- NOTE | 2019-08-18 14:29 | PROGRESS NOTE ---
DATE: 08/18/2019 SUBJECTIVE: I have seen and examined Mr. Patel today. Mr. Patel refers to be doing well, denies any new complaints. OBJECTIVE: Vital signs: Blood pressure is 152/69, pulse of 82, respiration is 18, temperature 98.6 degrees. General: Mr. Patel is a 39-year-old, male. He was sitting in the bed in no distress. HEENT: Mucosa is pink and moist. Anicteric. Acyanotic. Neck: Supple. There is positive mild JVD. Chest: Air entry is bilaterally reduced, a few crackles in the posterior lung mac. Cardiovascular: Regular rate and rhythm. There is positive S3. Abdomen: Soft. There is edema in the lateral aspect of the abdominal wall. Hopkins catheter has been removed. Extremities: Right has a BKA, the left has 2+ pedal edema. GAS LEAK TESTER: Patient is awake, alert, oriented, kind of slow to react and has a very flat affect and mood. LABORATORY DATA: Has been reviewed. Patient's hemoglobin is down to 7.0. Chemistry is also reviewed. Potassium is 2.9, creatinine is up to 7.3, BUN is 84. ASSESSMENT AND PLAN: 1. Anasarca secondary to chronic kidney disease stage V, nephrotic syndrome and possible congestive heart failure with preserved ejection fraction. 2. Chronic kidney disease stage V. Patient continues on medical management. Nephrology is on board. 3. Nephrotic range proteinuria secondary to diabetic nephropathy. 4. Severe, uncontrolled hypertension on admission, improved. 5. Diabetes mellitus. 6. Anemia of chronic disease. Patient is status post 1 packed red blood cell transfusion. His fecal occult testing is positive. Hemoglobin has dropped to 7. Again we are going to give him another unit and we will get GI to evaluate him. cc: Lennox Doan MD MTDD
[2019-08-18] MEDS ORDERED: NS 500 ML ONE (14:52)
--- NOTE | 2019-08-18 15:03 | GASTROENTEROLOGY CONSULTATION ---
DATE: 08/18/2019 REASON FOR CONSULTATION: GI bleed. HISTORY OF PRESENT ILLNESS: Mr. Patel is a 39-year-old male who has been in the hospital since 08/12/2019. He has a past medical history of hypertension and diabetes. The patient was in the hospital with complaints of chest pain, nausea and vomiting, mentioning that his emesis looked like dark brown color. The patient complains of epigastric pain and also complained of feeling of abdominal fullness and pain in the epigastric area, complained of having body aches, shortness of breath and felt like he was having too much swelling all around. When patient was in the ER, his blood pressure was elevated. It was 212/116. The patient's hemoglobin and hematocrit on admission was 8.0 and 24.6 and today it is 7.0 and 22.1. The patient has currently received 1 unit of blood. Currently, the patient has denied noticing any blood in his stools or blood in his emesis. He has denied any nausea and vomiting. The patient did have 1 bowel movement yesterday and he did not notice any black tarry stools or blood in his stools. His influenza A, B, group B strep, Ur. pneumonia strep and COVID 19 test were all negative. PAST MEDICAL HISTORY: The patient has a right wemwk-shq-dwro amputation, diabetes type 2, uncontrolled hypertension. PAST SURGICAL HISTORY: A right aufjd-you-tnfx amputation. SOCIAL HISTORY: The patient is single. Denies any alcohol, tobacco, or illicit drug use. Uses an artificial leg for ambulation. ALLERGIES: No known drug allergies. FAMILY HISTORY: No significant GI malignancies. HOME MEDICATIONS: The patient has denied taking any medicines at home. REVIEW OF SYSTEMS: As per HPI. Otherwise, 12 point review of system is negative. PHYSICAL EXAMINATION: Vital Signs: Temperature 98.6 degrees, pulse 82, respirations 18, blood pressure 152/69, oxygen saturation 97% on room air. The patient's weight is 215 pounds, BMI is 30.9 kg/m2. General: He is alert, oriented x3, and in no acute distress, answering questions appropriately. HEENT: Pale conjunctivae. No icterus. PERRL. Neck: Supple. Mild crackles heard in the anterior bases. Cardiovascular: Regular rate and rhythm. Abdomen: Soft, nontender, nondistended. Active bowel sounds heard in all 4 quadrants. Extremities: No clubbing, no cyanosis on the left lower extremity. The patient has a right vivgv-gkf-driw amputation. Neurologic: Alert and oriented x3. Nonfocal. Cranial nerves 2-12 grossly intact. LABORATORY DATA: WBCs are 13.74, RBCs 2.44, hemoglobin 7.0, hematocrit is 22.1, platelet count is 192,000. Sodium 137, potassium 2.9, chloride 99, carbon dioxide 21, anion gap 17, BUN 84, creatinine 7.3, glucose 133, calcium 6.4, phosphorus 7.5, albumin is 2.4. IMPRESSION AND PLAN 1. GI bleed. 2. Abdominal pain. 3. Nausea. 4. Vomiting. 5. Hyponatremia. 6. Diabetes type 2. 7. Hypertension. PLAN: Mr. Patel is a 39-year-old male with a history of diabetes and hypertension. GI has been consulted for his GI bleed. Currently, the patient's hemoglobin and hematocrit is 7.0 and 22.1. He has received 1 unit of blood so far and will be receiving one more unit of blood today. The patient is currently receiving antibiotics Zosyn and Zyvox. For his nausea and vomiting, he is on Phenergan and Zofran. The patient has also received albumin. The patient has denied noticing any further bleeding episodes either in his emesis or in his stools. We will continue to monitor his hemoglobin and hematocrit and if his hemoglobin drops below 7, we will plan to transfuse packed red blood cells as per protocol. This plan was discussed with Dr. Gates. Thank you for your consult. Please call us for any further questions or concerns. Dictated by DUNG Saleh for Luis F Gates MD cc: Luis F Gates MD [facility]
[2019-08-19] MEDS: ZOFRAN IV PRN (01:04)
[2019-08-19] MEDS: ZOSYN 2.25 GM in NS 50 ML IV SCH ×4 (04:41→21:14)
[2019-08-19] MEDS: APRESOLINE PO SCH ×3 (04:42→20:27)
[2019-08-19 07:49] LABS: HEMATOCRIT 23.1 % (42.0-52.0); HEMOGLOBIN 7.6 g/dL (14.0-18.0); MCH 29.8 PG (27-31); MCHC 32.9 g/dL (33-37); MCV 90.6 FL (81-99); MPV 9.3 FL (7.4-10.4); RBC 2.55 XMIL (4.7-6.1); WBC 13.58 X1000 (4.8-10.8)
[2019-08-19 08:27] LABS: ALBUMIN 2.8 g/dL (3.5-5.0); CREATININE 7.7 mg/dL (0.7-1.2); PHOSPHORUS 7.4 mg/dL (2.7-4.5)
[2019-08-19] MEDS ORDERED: KLOR-CON PO ONE (08:47)
[2019-08-19 08:53] LABS: CALCIUM 6.4 mg/dL (8.8-10.2)
[2019-08-19] MEDS: ZYVOX 600 MG/D5W 600 MG/300 ML IVPB IV SCH (09:48)
[2019-08-19] MEDS: NORVASC PO SCH ×2 (09:49→20:27)
[2019-08-19] MEDS: SODIUM BICARBONATE PO SCH ×2 (09:49→20:27)
[2019-08-19] MEDS: HEPARIN SUBQ SCH ×2 (09:49→20:27)
[2019-08-19] MEDS: COREG PO SCH ×2 (09:49→20:27)
[2019-08-19] MEDS: PROTONIX [NONFORMULARY] PO SCH ×2 (09:52→20:27)
[2019-08-19] MEDS: ALBUMIN 25% IV SCH (09:53)
[2019-08-19] MEDS: HUMALOG SUBQ SCH ×3 (11:16→20:28)
[2019-08-19] MEDS ORDERED: NS 500 ML ONE (12:19)
--- NOTE | 2019-08-19 14:10 | GASTROENTEROLOGY PROGRESS NOTE ---
DATE: 08/19/2019 SUBJECTIVE: Mr. Patel is a 39-year-old male who was sitting in the chair. The patient has denied any nausea, vomiting or abdominal pain. He has denied having any bowel movement today. The patient has a left rlbvl-cul-duxu amputation where his stump is infected. Patient does not want the nurses to do the wound care, he says it has been infected for some time and he is used to it. OBJECTIVE: Vital Signs: Temperature is 98.4 degrees, pulse is 75, respirations 18, blood pressure is 149/72, oxygen saturation is 96% on room air. The patient's weight is 222.4 pounds. BMI is 32.0 kg/m2. General: He is alert and oriented x3, in no acute distress. HEENT: Pale conjunctivae. No icterus. PEERL. Neck: Supple. Lungs: Mild crackles heard in the anterior mac. Cardiovascular: Regular rate and rhythm. Abdomen: Soft, nontender, nondistended. Active bowel sounds heard in all 4 quadrants. Extremities: No clubbing. No cyanosis. On the left lower extremity has a right ffmvw-mva-mtwn amputation where the a stump is infected. Neurologic: Alert and oriented x3. LABORATORY DATA: WBC is 13.58, RBC is 2.55, hemoglobin is 7.6, hematocrit is 23.1, platelet count is 170,000. Sodium is 131, potassium is 3.0, chloride is 95, carbon dioxide is 19, anion gap is 17, BUN is 86, creatinine is 7.7, glucose is 141, calcium is 6.4, albumin is 2.8. IMPRESSION AND PLAN: GI bleed Abdominal pain Nausea and vomiting Diabetes type II Hyponatremia Hypertension Right BKA PLAN: Mr. Patel is a 39-year-old male with a history of diabetes and hypertension. GI is following him for his GI bleed. The patient's hemoglobin and hematocrit today is 7.6 and 23.1, it has trended upwards. The patient has so far received 2 units of blood. The patient has denied any more further bleeding episodes. He is currently receiving Zyvox and Zosyn antibiotics. The patient is on PPIs twice a day. If the patient's hemoglobin and hematocrit drops below 7 we will transfuse PRBC's per protocol. Advised patient to follow us up as an outpatient in 3 to 4 weeks. and we will plan to do an EGD as an outpatient. We will continue to monitor the patients's H & H and follow the plan of care per PCP. This plan was discussed with Dr. Gates. Please call us for any further questions or concerns. Dictated by DUNG Saleh for Luis F Gates MD cc: Luis F Gates MD [facility]
--- NOTE | 2019-08-19 14:52 | PROGRESS NOTE ---
DATE: 08/19/2019 SUBJECTIVE: I have seen and examined Mr. Patel this morning. He denies any new complaints. OBJECTIVE: Vital Signs: Blood pressure is 149/72, pulse of 75, respirations are 18, temperature is 98.4 degrees. General Examination: Ms. Patel is a 39-year-old, gentleman. He is in bed. No distress. HEENT: Mucosa is pink and moist. Anicteric. Acyanotic. Neck: Supple. Chest: Air entry is bilaterally reduced. A few crackles posteriorly. Cardiovascular: Regular rate and rhythm. No murmurs, no rubs, no gallops. GI: Abdomen is soft. Some edema on the lateral aspect of the abdominal wall. Extremities: The patient has a right BKA. Left has 2+ pedal edema. TAMPER OPERATOR: The patient is awake, alert, and oriented. Psychiatric: The patient has a very flat mood and affect. Is and Os: Urine output was a total of about 1000. ASSESSMENT: 1. Anasarca secondary to chronic kidney disease stage 5 and nephrotic syndrome. 2. Chronic kidney disease stage 5. Patient continues to be on medical management. Nephrology is on board. 3. Nephrotic range proteinuria secondary to diabetic nephropathy. 4. Severe uncontrolled hypertension on admission, improved. 5. Diabetes mellitus, currently controlled on diet. 6. Anemia of chronic disease. The patient is status post 2 units of packed red blood cells during the hospital course. Hemoglobin is up to 7.6. Gastroenterology has been consulted for evaluation. 7. Hypokalemia, has been replaced. 8. Bilateral lower lobe infiltrate, concerning for pneumonia. Patient is on Zosyn and vancomycin. Tomorrow will be the last day of therapy. PLAN: In general, I think Mr. Patel is fairly stable. Continues to be slightly edematous. Diuretics have been discontinued from yesterday by nephrology and he has completed his treatment with albumin. We will follow up with further recommendations from nephrology going forward. cc: Lennox Doan MD
[2019-08-20] MEDS: HUMALOG SUBQ SCH ×5 (02:41→22:08)
[2019-08-20] MEDS: ZOSYN 2.25 GM in NS 50 ML IV SCH ×4 (03:07→21:15)
[2019-08-20] MEDS: APRESOLINE PO SCH ×3 (04:00→21:18)
[2019-08-20 06:59] LABS: HEMATOCRIT 22.3 % (42.0-52.0); HEMOGLOBIN 7.4 g/dL (14.0-18.0); MCH 30.2 PG (27-31); MCHC 33.2 g/dL (33-37); MPV 9.4 FL (7.4-10.4); RBC 2.45 XMIL (4.7-6.1); RDW 13.2 % (11.5-14.5); WBC 12.13 X1000 (4.8-10.8)
[2019-08-20 07:36] LABS: ALBUMIN 2.6 g/dL (3.5-5.0); CALCIUM 6.3 mg/dL (8.8-10.2); CREATININE 8.7 mg/dL (0.7-1.2); POTASSIUM 3.4 mmol/L (3.5-5.1)
[2019-08-20] MEDS ORDERED: XYLOCAINE-MPF 2% ONE (10:18)
[2019-08-20] MEDS ORDERED: VERSED ONE (10:18)
[2019-08-20] MEDS ORDERED: ROBINUL ONE (10:18)
[2019-08-20] MEDS ORDERED: DIPRIVAN 1% ONE (10:18)
--- NOTE | 2019-08-20 10:54 | ENDOSCOPY OPERATIVE NOTE ---
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 PROCEDURE PERFORMED: EGD, diagnostic MEDICATIONS: Per Anesthesia ESTIMATED BLOOD LOSS: None CONSENT: The patient understands the risks and benefits of the procedure and understands that these r isks include, but are not limited to: sedation, allergic reaction, infection, perforation and/or bleeding. Alternative means of evaluation and treatment include, among others: physical exam, x-rays, and/or surgical intervention. The patient elects to proceed with this endoscopic procedure. DESCRIPTION OF PROCEDURE: During pre-op preparation period all mechanical and medical equipment was c hecked for proper function. Hand hygiene and appropriate measures for infection prevention was taken. After the risks, benefits and alternatives of the procedure were thoroughly explained, Informed consent was verified, confirmed and timeout was successfully executed by the treatment team. The patient was anesthetized with topical anesthesia and the DJ17-q00 ([id number]) endoscope was introduced through the mouth and advanced to the stomach antrum. Retroflexio n of the stomach was not performed. The gastroscope was then slowly withdrawn and removed. The patient's toleration of the procedure was poor. ESOPHAGUS: Z line was noted at 45 cms from the incisors. Reflux esophagitis was found in the mid es ophagus and distal esophagus. Esophagitis was LA Class D: Mucosal breaks involving more than 75% of esophageal circumfe rence. STOMACH: Food was noted in the stomach suggesting Gastroparesis. Procedure was aborted because of H ypoxemia requirng pulling out the scope, oral airway insertion and bag mask ventilation. ADVERSE EVENTS: There were no complications. IMPRESSIONS: 1. Z line was noted at 45 cms from the incisors 2. Reflux esophagitis in the mid esophagus and distal esophagus 3. Food was noted in the stomach suggesting Gastroparesis 4. Procedure was aborted because of Hypoxemia requirng pulling out the scope, oral airway insertion and bag mask ventilation RECOMMENDATIONS: 1. Follow up biopsy with Dr Jain in 3 weeks 2. Start Protonix 40 mg IV BID for 90 days Keep good control of Diabetes Start Miralax 17g BID and hold for diarrhea GERD lifestyle changes 3. Begin an anti-reflux lifestyle: avoid acidic foods and drinks (like coffee and soda), do not lie down three hours after eating, elevate the head of your bed 6 to 9 inches, stop smokiing and reduce weight if needed. REPEAT EXAM: Return in 3 months for EGD. Reese Jain MD eSigned: Reese Jain MD 08/20/2019 10:54 AM CC: CPT CODES: 51924 Upper gastrointestinal endoscopy including esophagus, stomach, and either the du odenum and/or jejunum as appropriate; diagnostic, with or without collection of specimen(s) by brushing or washing (separate procedure) ICD CODES: 530.11 Reflux esophagitis The ICD and CPT codes recommended by this software are interpretations from the data that the [facility] staff has captured with the software. The verification of the translation of this report to the ICD and CPT co jie and modifiers is the sole responsibility of the health care institution and practicing physician where this report was generated. [employer] will not be held responsible for the validity of the ICD and CPT codes i ncluded on this report. [facility] assumes no liability for data contained or not contained herein. CPT is a registered tra demark of the [employer]. PATIENT NAME: Bart Patel MR#: [id number]
[2019-08-20] MEDS: COREG PO SCH ×2 (12:08→21:15)
[2019-08-20] MEDS: SODIUM BICARBONATE PO SCH ×2 (12:09→21:15)
[2019-08-20] MEDS: HEPARIN SUBQ SCH ×2 (12:10→21:16)
[2019-08-20] MEDS: NORVASC PO SCH ×2 (12:10→21:15)
[2019-08-20] MEDS: PROTONIX IV SCH ×2 (12:17→21:17)
[2019-08-20] MEDS: REGLAN IV SCH ×2 (12:17→18:12)
[2019-08-20] MEDS: SODIUM CHLORIDE 0.9% INJ SCH ×2 (12:17→21:17)
--- NOTE | 2019-08-20 16:10 | PROGRESS NOTE ---
DATE: 08/20/2019 SUBJECTIVE: This morning Mr. aPtel refers to be doing well. Denies any new complaints. He is awaiting his EGD. OBJECTIVE: Vital signs: Blood pressure 151/91, pulse of 85, respirations 20, temperature is 97.5 degrees. General: Mr. Patel is a 39-year-old gentleman, he is in bed, in no distress. HEENT: Mucosa is pink and moist. Anicteric. Acyanotic. Neck: Supple. Chest: Clear to auscultation. No crepitations. No rhonchi. Cardiovascular: Regular rate and rhythm. No murmurs, no rubs, no gallops. GI: Abdomen is soft, minimally distended, but nontender. Bowel sounds present. Extremities: Right lower extremity has a BKA. The left has 2+ pedal edema. 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 Psychiatric: The patient has a very flat mood and affect. LABORATORY DATA: Has been reviewed. WBC is 12.13, hemoglobin is 7.4. Chemistry is also reviewed which is consistent with renal failure. Creatinine actually continues to go up at 8.7. ASSESSMENT: 1. Anasarca secondary to CKD stage 5 and nephrotic syndrome. 2. CKD stage 5. The patient continues to be on medical management. Nephrology is on board. Creatinine continues to be trending up. I think Mr. Patel is going to be needing renal replacement therapy very soon. 3. Nephrotic range proteinuria secondary to diabetic nephropathy. 4. Severe uncontrolled hypertension on admission. Improved. 5. Diabetes mellitus. Controlled on diet. 6. Anemia of chronic disease. The patient is status post 2 PRBC transfusions. He is pending EGD today. 7. Bilateral lower lobe infiltrate concerning for pneumonia. The patient was treated with IV antibiotics. He has completed a course of treatment. PLAN: So in general I think Mr. Patel is fairly stable. He is still fluid overloaded, which we think is all related to his nephrotic syndrome CKD stage 5. He is still mildly acidotic and some fluid overload. I think he is going to need renal replacement in the next couple of days. We will follow up with Dr. Contreras, the Diesel Truck Driver for his final recommendations. I think from a medical standpoint Mr. Patel can be discharged whenever it is okay with Nephrology. cc: Lennox Doan MD Addendum: Nephrology notes noted. Patient wants to go home and think about renal replacement therapy. Patient be discharged in the morning if he remains stable. MTDD
--- NOTE | 2019-08-20 17:49 | NEPHROLOGY PROGRESS NOTE ---
DATE: 08/20/2019 SUBJECTIVE: His swelling is returning. Shortness of breath is present but modest in degree. He has not exerted himself. OBJECTIVE: Vital Signs: Blood pressure 186/84, heart rate 76, respirations 16, afebrile. General: No acute distress. 2+ edema. IMPRESSION: Chronic kidney disease 5. I counseled the patient regarding the severity of his renal disease. Likely related to his diabetes. Likely end-stage. We discussed dialysis access as well as typical schedule for renal replacement therapy using hemodialysis. We discussed some of the social issues that may surround this including his need for compliance in transportation etc. I offered to consult surgery and have access placed and initiate treatment. He states he would prefer to go home and think about it. He does not have any overt contraindications to this. If he desires to proceed with dialysis then we will gladly provide that service. cc: Main Lopez MD
[2019-08-21] MEDS: APRESOLINE PO SCH ×2 (04:46→14:41)
[2019-08-21] MEDS: HUMALOG SUBQ SCH ×3 (06:04→17:40)
[2019-08-21 07:11] LABS: HEMATOCRIT 22.9 % (42.0-52.0); HEMOGLOBIN 7.3 g/dL (14.0-18.0); MCH 28.7 PG (27-31); MCHC 31.9 g/dL (33-37); MCV 90.2 FL (81-99); MPV 9.3 FL (7.4-10.4); RBC 2.54 XMIL (4.7-6.1); RDW 12.9 % (11.5-14.5); WBC 9.11 X1000 (4.8-10.8)
[2019-08-21 07:35] LABS: ALBUMIN 2.5 g/dL (3.5-5.0); CREATININE 9.5 mg/dL (0.7-1.2); PHOSPHORUS 8.7 mg/dL (2.7-4.5); POTASSIUM 3.4 mmol/L (3.5-5.1)
[2019-08-21 07:49] LABS: CALCIUM 6.5 mg/dL (8.8-10.2)
[2019-08-21] MEDS: COREG PO SCH (09:22)
[2019-08-21] MEDS: NORVASC PO SCH (09:22)
[2019-08-21] MEDS: SODIUM BICARBONATE PO SCH (09:22)
[2019-08-21] MEDS: HEPARIN SUBQ SCH (09:24)
[2019-08-21] MEDS: SODIUM CHLORIDE 0.9% INJ SCH (09:24)
[2019-08-21] MEDS: REGLAN IV SCH ×3 (09:24→17:36)
[2019-08-21] MEDS: PROTONIX IV SCH (09:24)
[2019-08-21] MEDS ORDERED: MIRALAX PO SCH (14:00)
--- NOTE | 2019-08-21 14:33 | GASTROENTEROLOGY PROGRESS NOTE ---
DATE: 08/21/2019 SUBJECTIVE: Mr. Patel is a 39-year-old male who was sitting in the chair having his breakfast. The patient has denied any nausea, vomiting, or abdominal pain. The patient has denied having any bowel movements today. OBJECTIVE: Vital signs: Temperature 99.8 degrees, pulse 83, respirations 12. Blood pressure 155/67, oxygen saturation 95% on room air. The patient's weight is 227 pounds. BMI is 32.7 kg/m2. General: He is alert, oriented x3, and in no acute distress. HEENT: Pale conjunctivae. No icterus. PERRL. Neck: Supple. Lungs: Mild crackles heard in the anterior mac. Cardiovascular: Regular rate and rhythm. Abdomen: Soft, nontender, nondistended. Active bowel sounds heard in all 4 quadrants. Extremities: No clubbing, no cyanosis on the left lower extremity. Has a right [id number]-aje-[id number] amputation, and his stump is infected. Neurologic: Alert, oriented x3. LABS: WBCs 9.11, RBC is 2.54, hemoglobin is 7.3, hematocrit 22.9, and platelet count is 167. Sodium is 135, potassium is 3.4, chloride is 98, carbon dioxide is 18, anion gap is 19, BUN is 86, creatinine is 9.5. Glucose is 90. Calcium is 6.5. Phosphorus is 8.7. Albumin is 2.4. IMPRESSION AND PLAN: - GI bleed - Esophagitis - Probable gastroparesis - Type 2 diabetes - Nausea and vomiting - Hypertension - Constipation A/P Mr. Patel is a 39-year-old male with a history of diabetes and hypertension. GI is following him for his GI bleed. Currently, the patient's hemoglobin and hematocrit are 7.3 and 22.9. The patient had an EGD done yesterday, and he had reflux esophagitis, food in the stomach suggesting gastroparesis, and the procedure had to be aborted due to patient being hypoxic. We will continue patient with PPI's twice a day for 90 days. The patient is on Reglan 5 mg 3 times a day. The patient is complaining of constipation. He has not had a bowel movement in last few days. We will start him on MiraLAX twice a day. Patient's right stump is infected, wound nurse was consulted, but the patient has refused care. He did not let the wound nurse see the wound. We have advised the patient to follow us up in 4 weeks, and we will have a repeat EGD done in 3 months. This plan was discussed with Dr. Theodore. Please call us for any further questions or concerns. Dictated by DUNG Saleh for Paulino Theodore MD Physician Attestation I have seen and examined the patient. I have discussed and reviewed the note by Yvonne RAZO and agree with findings and plan as documented. MTDD
--- NOTE | 2019-08-21 16:03 | NEPHROLOGY PROGRESS NOTE ---
DATE: 08/21/2019 SUBJECTIVE: He denies shortness of breath, nausea, or vomiting. Anxious to go home. OBJECTIVE: Vital Signs: Blood pressure 155/67, heart rate 83, respirations 12, temperature 99.8 degrees. Generally: Chronically ill, no acute distress. Skin: Warm and dry. HEENT: Conjunctivae are pink. Neck: Neck veins are not appreciated. Heart: Regular. Lungs: Equal. No crackles. Abdomen: Unchanged. Extremities: Two to 3+ edema. IMPRESSION: Acute kidney injury. More likely progressive chronic kidney disease stage 5. I have offered the patient hemodialysis and discussed access dialysis schedules, risks, and benefits, including likely outcome of avoiding dialysis. Specifically, he likely will have weeks before he becomes acutely ill and is at risk of dying. He still would like to go home as opposed to making a decision at this time. If he is discharged, then kindly make an appointment to follow up with us in the office. cc: Main Lopez MD
[2019-08-21 16:14] VITALS: BP 158/66
[2019-08-21] MEDS ORDERED: TUMS EXTRA STRENGTH PO SCH (17:00)
--- NOTE | 2019-08-21 19:21 | DISCHARGE SUMMARY ---
ADMISSION DATE: 08/12/2019 DISCHARGE DATE: 08/21/2019 DISCHARGE DIAGNOSES: 1. Acute on chronic renal failure with progression of chronic renal failure stage 5. 2. Nephrotic syndrome. 3. Uncontrolled hypertension. 4. Type 2 diabetes. 5. Pneumonia. 6. Anemia of chronic transfusion. PROCEDURES: Endoscopy, which was done on the . CONSULTATIONS: 1. Cardiology, William Edmondson MD 2. Nephrology, Main Lopez MD 3. Gastroenterology, Luis F Gates MD. Endoscopy done on the per Reese Jain MD. HISTORY AND HOSPITAL COURSE: This is a 39-year-old male, hypertensive diabetic who was not feeling well, had worsening swelling, blood pressure 212/116 with anasarca. He was placed on Zosyn and Zyvox. Initially, he had acute kidney injury. Last creatinine was 1.3, but that was in 2018. When he came in, his creatinine was 6.6. He was seen initially at [place] and then transferred to [facility], overall seemed to be doing okay, quantified urine protein, but I think it ended up showing nephrotic range proteinuria. The total urine protein was 11.8 g consistent with significant proteinuria, likely diabetic nephropathy. Chest, abdomen and pelvic CT showed pneumonia, bilateral left and right cardiomegaly. Cardiology was consulted for possible CHF. COVID-19 testing was done because he had bilateral infiltrates and flu-like symptoms, presumably that was negative. COVID was not detected. The patient improved slowly. He had diastolic heart failure. He was placed on Lasix, albumin, metolazone, sodium bicarb. There was concern over progression towards needing dialysis. He was diuresed. He ended up getting 2 units of blood I think total. His hemoglobin dropped to 7. His hematocrit dropped to 22, but he ended up getting 2 units of blood. He is 7 and 23 on the day of discharge. White count is normal. Again, plans were made to consider progressing towards dialysis, but he did not want that. GI was consulted because of nausea, vomiting, and he ended up getting an endoscopy, which showed reflux esophagitis, possible gastroparesis. He had some hypoxia so they decided to not complete it, but he will need PPI treatment so we will give him that. We will give him Reglan. On day of discharge, Dr. Gladish recommended dialysis. He said he did not want to pursue dialysis at this time. He wanted to go home first and make his decision so we made those arrangements possible. His creatinine is up to around 8, but we will go ahead and give him Reglan so he will need to follow up with Dr. Lopez next week for labs, Dr. Jain or Dr. Theodore in the next 2 weeks and follow up from that standpoint. DISCHARGE MEDICATIONS: Prilosec 40 b.i.d., hydralazine 50 t.i.d., Coreg 12.5 q.8, amlodipine 5 b.i.d., Prilosec 40 b.i.d. for 90 days, sodium bicarb 1300 b.i.d., calcium carbonate 750 t.i.d. He is currently not on any Lasix, but he had been previously on Lasix. Again, he was offered to go ahead and start dialysis but refused. He is currently not on Lasix, but he may end up needing to be on some Lasix. His creatinine currently is 86 and 9.5 so we will continue his current medications and follow. He has been on IV antibiotics, but he is not currently on any IV antibiotics. He has been on antibiotics since the , which has been over a week, so we will continue to follow, so we are going to follow there and see how things go. TIME SPENT: 32-minute discharge. cc: MD Main Tapia MD Manish Arora, MD Babu Kantamneni, MD
== END 2019-08-21 19:34 | disposition home or self-care (01) | DRG 193 ==
LOC: P.ED 13:03 → 2N 17:09 → SUATTDRO 17:09 → 2N 18:09 → 3N 08-17 16:29
PROVIDERS: ATTEND Internal Medicine

== ENCOUNTER 2019-08-23 14:44 | Inpatient (IN) ==
--- NOTE | 2019-08-23 15:24 | PROVIDER DOCUMENTATION ---
HPI-Respiratory General - General Chief Complaint: Edema Stated Complaint: "NEEDS DIALYSIS" Time Seen by Provider: 08/23/19 15:00 Source: patient Allergies/Adverse Reactions: Patient Allergies Allergy/AdvReac Type Severity Reaction Status Date / Time No Known Allergies Allergy Verified 08/12/19 14:18 Home Medications: Home Medication List Medication Instructions Recorded Confirmed Last Taken Type Amlodipine [Norvasc] 5 mg PO BID #60 tab 08/21/19 Unknown Rx Calcium Carbonate [Tums Extra 750 mg PO TID CC #90 tab 08/21/19 Unknown Rx Strength] Carvedilol [Coreg] 12.5 mg PO Q12HR #60 tab 08/21/19 Unknown Rx Hydralazine [Apresoline] 50 mg PO Q8HR #90 tab 08/21/19 Unknown Rx Metoclopramide HCl [Reglan] 5 mg PO TID #90 tab 08/21/19 Unknown Rx Omeprazole [Prilosec] 40 mg PO BID AC #60 cap 08/21/19 Unknown Rx Sodium Bicarbonate 1,300 mg PO BID #60 tab 08/21/19 Unknown Rx - History of Present Illness-Resp Nature of Presenting Problem: Patient is a 39 yom who c/o "swelling all over, mostly in my lower body", as well as SOB with exertion. Discharged from the hospital for same 2 days ago. States, "Dr. Lopez told me I need dialysis." Review of Systems - Adult - REVIEW OF SYSTEMS - ADULT Constitutional: reports: no symptoms reported Eyes: reports: no symptoms reported Ears, Nose, Mouth & Throat: reports: no symptoms reported Cardiovascular: reports: edema Respiratory: reports: see HPI Gastrointestinal: reports: no symptoms reported Genitourinary: reports: no symptoms reported Musculoskeletal: reports: no symptoms reported Integumentary: reports: no symptoms reported Neurological: reports: no symptoms reported Psychiatric: reports: no symptoms reported Endocrine: reports: no symptoms reported Hematologic/Lymphatic: reports: no symptoms reported Allergic/Immunologic: reports: no symptoms reported All Other Systems: Reviewed and Negative Past History - Adult - PAST MEDICAL HISTORY-ADULT Review of Records: reports: Old Records Reviewed, Nursing Assessment Review, Medications Reviewed Major Childhood Illnesses: reports: denies history Cardiovascular: reports: HTN Respiratory: reports: denies history Gastrointestinal: reports: denies history Obstetrical/Gynecological: reports: denies history Genitourinary: reports: kidney disease Musculoskeletal: reports: denies history Neurological: reports: denies history Endocrine/Immune: reports: Diabetes Diabetes Type: Type 2 Other Conditions: reports: other (bilateral foot 2nd and 3rd digit clubbing) - PRIOR SURGERIES/PROCEDURES Surgical/Procedure History: reports: other (foot amputation) - IMMUNIZATION STATUS Childhood Immunizations: See Nurse Assessment Flu Vaccine: See Nurse Assessment - FAMILY HISTORY Family History: reviewed, not pertinent - SOCIAL HISTORY Smoking: non-smoker Physical Exam-General - PHYSICAL EXAM-ADULT Initial Vital Signs Reviewed: Yes - CONSTITUTIONAL General Appearance: alert, no apparent distress. negative: lethargic, slow to respond - EYES Eyes: PERRL/EOMI - HEAD, EARS, NOSE, MOUTH & THROAT HENMT: normocephalic/atraumatic - NECK Neck: full range of motion, supple, normal inspection - RESPIRATORY Respiratory: chest non-tender, normal breath sounds, no pleuratic chest pain, no accessory muscle use, crackles (bilateral bases) - CARDIOVASCULAR Cardiovascular: normal peripheral pulses, systolic murmur, other (3+ pitting edema (left lower extremity, right lower extremity amputated below the knee). 2+ edema noted to bilateral hands) - GASTROINTESTINAL (ABDOMEN) Abdominal Exam: normal bowel sounds, non tender, soft - MUSCULOSKELETAL Back Exam: normal inspection Extremity: normal range of motion, normal gait, normal inspection - SKIN Integumentary: normal color, warm/dry. negative: cyanosis, diaphoresis, jaundice, mottled, pallor - NEUROLOGIC Neurologic: grossly normal, no motor/sensory deficits - PSYCHIATRIC Psych/Mental Status: normal mood/affect, normal thought content, normal thought process, oriented x 3 Progress - PLAN OF CARE/RESULTS Progress/Plan/Lab Results: Vital Signs - 8 hr 08/23/19 15:12 Temperature 98.4 F Pulse Rate 85 Respiratory Rate 16 Blood Pressure 140/81 O2 Sat by Pulse Oximetry 97 Laboratory Results - last 24 hr 08/23/19 08/23/19 08/23/19 15:58 15:58 15:58 WBC 10.89 H RBC 2.68 L Hgb 7.8 L Hct 23.9 L MCV 89.2 MCH 29.1 MCHC 32.6 L RDW Std Deviation 12.8 Plt Count 141 MPV 9.3 Immature Gran % (Auto) 0.4 Neut % (Auto) 80.1 H Lymph % (Auto) 9.1 L [place] % (Auto) 6.7 Eos % (Auto) 3.4 Baso % (Auto) 0.3 Immature Gran # (Auto) 0.04 Neut # (Auto) 8.73 H Lymph # (Auto) 0.99 L [place] # (Auto) 0.73 H Eos # (Auto) 0.37 Baso # (Auto) 0.03 PT INR PTT (Actin FS) Sodium 132 L Potassium 3.6 Chloride 96 L Carbon Dioxide 16 L Anion Gap 20 BUN 81 H Creatinine 9.5 H Estimated GFR/1.73 m2 6 BUN/Creatinine Ratio 9 Glucose 114 H Calculated Osmolality 290 Calcium 7.4 L Phosphorus Magnesium 1.6 Total Bilirubin 0.16 L AST 13 ALT 12 Alkaline Phosphatase 69 Afe-B-Kehiqkpdhne Pept > 71017 H Total Protein 5.2 L Albumin 2.8 L Globulin 2.4 Albumin/Globulin Ratio 1.2 Urine Source Urine Color Urine Turbidity Urine pH Ur Specific [place] Urine Protein Ur Glucose (Stick) Ur Ketones (Stick) Urine Blood Urine Nitrite Urine Bilirubin Urobilinogen Dipstick Urine Leukocytes Urine WBC (Auto) Urine RBC (Auto) U Epithel Cells (Auto) Urine Bacteria (Auto) 08/23/19 08/23/19 08/23/19 15:58 15:58 16:25 WBC RBC Hgb Hct MCV MCH MCHC RDW Std Deviation Plt Count MPV Immature Gran % (Auto) Neut % (Auto) Lymph % (Auto) [place] % (Auto) Eos % (Auto) Baso % (Auto) Immature Gran # (Auto) Neut # (Auto) Lymph # (Auto) [place] # (Auto) Eos # (Auto) Baso # (Auto) PT 15.9 INR 1.25 PTT (Actin FS) 30.9 Sodium Potassium Chloride Carbon Dioxide Anion Gap BUN Creatinine Estimated GFR/1.73 m2 BUN/Creatinine Ratio Glucose Calculated Osmolality Calcium Phosphorus 8.8 H Magnesium Total Bilirubin AST ALT Alkaline Phosphatase Ybq-K-Hwzhqnuvloh Pept Total Protein Albumin Globulin Albumin/Globulin Ratio Urine Source CLEAN CATCH Urine Color YELLOW Urine Turbidity HAZY Urine pH 6.5 Ur Specific [place] 1.012 Urine Protein 600 A Ur Glucose (Stick) 100 A Ur Ketones (Stick) NEGATIVE Urine Blood SMALL A Urine Nitrite NEGATIVE Urine Bilirubin NEGATIVE Urobilinogen Dipstick NORMAL Urine Leukocytes NEGATIVE Urine WBC (Auto) 20-40 A Urine RBC (Auto) <10 U Epithel Cells (Auto) <10 Urine Bacteria (Auto) NEGATIVE Orders Category Date Time Status CHEST-2 VIEWS [RAD] Stat Exams 08/23/19 15:27 Completed CBC WITH DIFF [HEME] Stat Lab 08/23/19 15:58 Completed COMPREHENSIVE METABOLIC PANEL [CHEM] Stat Lab 08/23/19 15:58 Completed MAGNESIUM [CHEM] Stat Lab 08/23/19 15:58 Completed PHOSPHORUS [CHEM] Stat Lab 08/23/19 15:58 Completed PRO B-NATRIURETIC PEPTIDE Stat Lab 08/23/19 15:58 Completed PROTIME WITH INR [COAG] Stat Lab 08/23/19 15:58 Completed PTT [COAG] Stat Lab 08/23/19 15:58 Completed UA NIMS W/REFLEX CULT [URINALYSIS] Stat Lab 08/23/19 16:25 Completed EKG [EKG] Stat Ther 08/23/19 15:27 Ordered Result Diagrams: 08/23/19 15:58 08/23/19 15:58 - REASSESSMENT Reassessment #1 Time Reassessed: 17:29 Status: other (Results reviewed. Dr. Jessica nascimento.) Reassessment #2 Time Reassessed: 17:55 ( ) Status: other (Dr. Jessica white) - XRAY 1 XRAY Study: Chest ([facility] - [address] [place] [address] [place] [id number] [facility] - [address] [place] [address] Department of Imaging Patient: LAKESHIA LARA AADM Date: 08/23/19#: [id number] : 1980ADM Status: PRE ERAcct#: [id number] Age/Sex: 39/MRoom/Bed: Loc: ED Ordering Physician: Fariba Babin Family Physician: FAVIO ANDRE Reason for Procedure: SOB, edema ___ Signed EXAM: CHEST-2 VIEWS HISTORY: SOB, edema TECHNIQUE: Three views COMPARISON: 08/12/2019 FINDINGS: The lungs are well expanded. The heart is enlarged. The vessels are not distended. There are no infiltrates. There are small pleural effusions. IMPRESSION: Cardiomegaly, but no pulmonary edema Electronically signed by Zaheer Prado 08/23/2019 3:46 PM 08/23/19 1546 Interpreting Physician: Zaheer Prado MD Dictated Date/Time: 08/23/19 1546 cc: Fariba Babin; FAVIO ANDRE) - CONSULTS/PCP/HOSPITALIST Notification #1 *Consult/PCP/Hospitalist*: Dr. Lopez Time Discussed: 17:59 Reason/Comments: renal failure, anasarca, SOB Consult Disposition: Admit (to [facility], requests surgery consult for dialysis cath) #2 Consult: DOUG Aragon [employer] Time Discussed: 18:01 Reason/Comments: admit-renal failure, anasarca, SOB Consult Disposition: Admit Departure - Departure Date of Disposition Decision: 08/23/19 Time of Disposition Decision: 18:01 DIAGNOSIS: ESRF (end stage renal failure), Anasarca, SOB (shortness of breath) Anemia Qualifiers: Anemia type: unspecified type Qualified Code(s): D64.9 - Anemia, unspecified Disposition: ADMITTED INPATIENT 09 Certified Medical Emergency: Emergent Condition: Stable Referrals and Follow-Ups: FAVIO ANDRE CRNP [Primary Care Provider] - - Critical Care Note This patient required my direct & personal management of CC.: No Attestation - Physician/ KUSH Attestation Patient care was provided by Advanced Practice Provider:: Yes Advanced Practice Provider:: Fariba Babin Advanced Practice Provider documentation review:: The Mid-level provider documentation, treatment plan and medical decision making was reviewed by the physician who agrees with all treatment and medical decision making by the MLP. The physician spent face to face time with patient:: No Advanced Practice Provider documentation review:: Supervising physician onsite and consulted in the evaluation and care of this patient. The physician did not have a face to face encounter with the patient.
--- NOTE | 2019-08-23 15:49 | Diag Imaging Result Doc PS360 ---
EXAM: CHEST-2 VIEWS HISTORY: SOB, edema TECHNIQUE: Three views COMPARISON: 08/12/2019 FINDINGS: The lungs are well expanded. The heart is enlarged. The vessels are not distended. There are no infiltrates. There are small pleural effusions. IMPRESSION: Cardiomegaly, but no pulmonary edema Electronically signed by Zaheer Prado 08/23/2019 3:46 PM
[2019-08-23 16:29] LABS: URINE SOURCE CLEAN CATCH
[2019-08-23 16:31] LABS: BILIRUBIN URINE NEGATIVE (NEGATIVE); BLOOD URINE SMALL (NEGATIVE); COLOR YELLOW; GLUCOSE URINE 100 mg/dL (NEGATIVE); KETONE URINE NEGATIVE (NEGATIVE); LEUKOCYTES URINE NEGATIVE (NEGATIVE); NITRITE URINE NEGATIVE (NEGATIVE); PH URINE 6.5; PROTEIN URINE 600 mg/dL (NEGATIVE); SP GRAVITY URINE 1.012; TURBIDITY URINE HAZY (CLEAR); UR EPITHELIAL CELLS <10 /HPF (<10); URINE BACTERIA NEGATIVE /HPF; URINE RBC <10 /HPF (<10); URINE WBC 20-40 /HPF (<10); UROBILINOGEN URINE NORMAL (NORMAL)
[2019-08-23 16:46] LABS: INR 1.25; PROTIME 15.9 Seconds (11.0-16.0)
[2019-08-23 16:47] LABS: PTT 30.9 Seconds (22.3-41.8)
[2019-08-23 16:52] LABS: BASO# 0.03 X1000 (0.0-0.2); BASO% 0.3 % (0.0-0.8); EOS# 0.37 X1000 (0.0-0.7); EOS% 3.4 % (0.0-10.0); HEMATOCRIT 23.9 % (42.0-52.0); HEMOGLOBIN 7.8 g/dL (14.0-18.0); IMM GRAN# 0.04 X1000 (0.0-0.04); IMM GRAN% 0.4 % (0.0-0.5); LYMPH# 0.99 X1000 (1.2-3.4); LYMPH% 9.1 % (20.5-51.1); MCH 29.1 PG (27-31); MCHC 32.6 g/dL (33-37); MCV 89.2 FL (81-99); MONO# 0.73 X1000 (0.11-0.59); MONO% 6.7 % (1.7-9.3); MPV 9.3 FL (7.4-10.4); NEUT# 8.73 X1000 (1.4-6.5); NEUT% 80.1 % (42.2-75.2); PLT 141 X1000 (130-400); RBC 2.68 XMIL (4.7-6.1); RDW 12.8 % (11.5-14.5); WBC 10.89 X1000 (4.8-10.8)
[2019-08-23 17:23] LABS: ALB/GLOB RATIO 1.2; ALBUMIN 2.8 g/dL (3.5-5.0); CALCIUM 7.4 mg/dL (8.8-10.2); CREATININE 9.5 mg/dL (0.7-1.2); MAGNESIUM 1.6 mg/dL (1.5-2.7); POTASSIUM 3.6 mmol/L (3.5-5.1); TOTAL BILIRUBIN 0.16 mg/dL (0.20-1.00); TOTAL PROTEIN 5.2 g/dL (6.3-8.3)
[2019-08-23] MEDS ORDERED: ZOFRAN IV PRN (18:14)
[2019-08-23] MEDS ORDERED: TYLENOL PO PRN (18:14)
--- NOTE | 2019-08-23 18:46 | HISTORY AND PHYSICAL ---
Mr. Patel is a 39-year-old. He was recently here in the hospital, admitted on 08/12/2019, discharged on 08/21/2019. PAST MEDICAL HISTORY: 1. 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 2. Diabetes mellitus type 2. 3. Uncontrolled hypertension. PAST SURGICAL HISTORY: Right nrhjy-coh-xvfd amputation. He was followed by Dr. Lopez here. He has end-stage chronic kidney disease, approaching stage 5D, and he recommended dialysis which the patient had refused, but he has complained of more swelling and increased dyspnea. No fever or chills, mainly his dyspnea and increased anasarca. SOCIAL HISTORY: Lives alone. Remote history of psychiatric illness. I do not have details. He denies alcohol or tobacco. ALLERGIES: No known drug allergies. FAMILY HISTORY: Noncontributory. REVIEW OF SYSTEMS: General: He does not report any fever or chills or change in nutrition. HEENT: No change in visual or hearing acuity reported. No neck pain or adenopathy. Respiratory: He does have increased dyspnea noted. Cardiovascular: No chest pain or tachypalpitations. Gastrointestinal and Genitourinary: No gross hematuria or dysuria. Musculoskeletal/Neurologic: No focal complaints. He is status post right vwfxk-rfa-nvzk amputation. He has his prosthesis on. PHYSICAL EXAMINATION: GENERAL: In the emergency room, temperature 98.4 degrees, pulse 85, respirations 16, blood pressure 140/81. EYES: Pupils are equal and round. LUNGS: Clear in all lung mac. CARDIOVASCULAR: Regular rhythm and rate without murmur or S3. No distended neck veins. CVP less than 6 cm. He does have pedal edema from his ankle to really above his knee. ABDOMEN: Soft and nondistended. SKIN: Warm and dry. NECK: Supple. No adenopathy. No thyromegaly. LABORATORY DATA: White count 10,890, hematocrit is 26, hemoglobin 7.8, platelet count is 141,000. Sodium 132, potassium 3.6, chloride 96, BUN 81, creatinine 9.5, blood sugars 114, calcium 7.4, magnesium 1.6, AST and ALT are 13 and 12. His proBNP is 35,000. Albumin is 2.4. ProTime is 15.9 with an INR 1.25, PTT of 30.9. Urinalysis with 20 to 40 white blood cells, less than 10 red blood cells, negative for bacteria. Chest x-ray: Cardiomegaly, but no pulmonary edema. ASSESSMENT AND PLAN: 1. Chronic kidney disease stage 5D, with azotemia and increased volume overload. He is here and wants to pursue dialysis. Dr. Lopez will be consulted. We are going to get Dr. Mora to place a tunneled catheter and get him on hemodialysis. I do not see any sign of infection. 2. Diabetes mellitus. We will check his blood sugars and follow. Check hemoglobin A1c. Check a T4, TSH, B12, folate. 3. History of hypertension. 4. Status post right zibor-xia-pxgm amputation back in 2016. Looking back at his report and looking for an echocardiogram, which he had done on 08/12/2019, there was no significant valvular abnormality, borderline left ventricular enlargement, mild concentric left ventricular hypertrophy. Estimated ejection fraction at that time 55%. Mild to moderate left atrial enlargement. Cardiology had evaluated and they tested the last time he was here for Coronavirus disease-19, but did not feel he needed anything else done from a cardiac standpoint. cc: Krishna Bales MD
[2019-08-23] MEDS: COREG PO SCH (22:31)
[2019-08-23] MEDS: SODIUM BICARBONATE PO SCH (22:31)
[2019-08-23] MEDS: APRESOLINE PO SCH (22:31)
[2019-08-23] MEDS: NORVASC PO SCH (22:31)
[2019-08-23] MEDS: HUMULIN R SUBQ SCH (22:49)
--- NOTE | 2019-08-24 06:14 | GENERAL SURGERY CONSULTATION ---
DATE: 08/24/2019 REQUESTING PHYSICIAN: Hospitalist. CONSULT REQUEST: Placement of a tunneled hemodialysis catheter. HISTORY OF PRESENT ILLNESS: A 39-year-old gentleman, recently discharged from the hospital, who is complaining of swelling all over his lower body. He has baseline chronic kidney disease. He was seen in the hospital 2 days ago and had been discharged. He had an issue with a GI bleed at that time, but it seemed to have resolved. He has not required hemodialysis yet home, but he was getting very close and in the previous admission they had talked to him about it and he had refused now he is willing to have a dialysis access placed. The patient was readmitted for the swelling. PAST MEDICAL HISTORY: Type 2 diabetes. Uncontrolled hypertension. PAST SURGICAL HISTORY: The past surgical history includes right tpudp-ttb-xqpt amputation. SOCIAL HISTORY: Lives alone. ALLERGIES: None. HOME MEDICATIONS: None. FAMILY HISTORY: Reviewed with the patient and noncontributory. REVIEW OF SYSTEMS: A full 14 systems were reviewed and negative except as specified in the HPI. PHYSICAL EXAMINATION: Vital Signs: The patient is currently afebrile. His vital signs are stable. General: No acute distress. HEENT: Normocephalic, atraumatic. Pupils equal, round, and reactive to light. Mucous membranes moist. Oropharynx benign. Neck: Supple. Trachea midline. Cardiovascular: Regular rate and rhythm. Lungs: Grossly clear. Abdomen: Soft, nontender, nondistended. Extremities: Moves all extremities. Previous right tcjox-fdv-tmki amputation noted. Vascular: All extremities perfused. Neurologic: Grossly intact. Skin: No signs of jaundice. LABORATORY: White blood cell count is 10, hematocrit is 23, platelet count 141,000. INR is 1.25. BUN 81, creatinine 9.5, potassium is 3.6. ASSESSMENT/PLAN: A 39-year-old with chronic kidney disease, now requiring hemodialysis access. Chronic kidney disease requiring hemodialysis access: At this time, we will plan on placement of a tunneled hemodialysis catheter. We will get a vein mapping of his upper extremities to evaluate for fistula placement in the near future, but we will get the tunneled catheter addressed today. Discussed the risks, benefits, and alternatives of the procedure, risks including but not limited to bleeding, infection, risk of anesthesia, risk of pneumothorax discussed and all questions answered. cc: Loc Mora MD
[2019-08-24] MEDS: HUMULIN R SUBQ SCH ×4 (06:30→21:00)
[2019-08-24] MEDS: PRILOSEC PO SCH ×2 (06:51→18:08)
[2019-08-24] MEDS: APRESOLINE PO SCH ×3 (06:52→20:41)
[2019-08-24 07:15] LABS: BASO# 0.03 X1000 (0.0-0.2); BASO% 0.3 % (0.0-0.8); EOS# 0.35 X1000 (0.0-0.7); EOS% 3.5 % (0.0-10.0); HEMATOCRIT 23.1 % (42.0-52.0); HEMOGLOBIN 7.4 g/dL (14.0-18.0); LYMPH# 0.92 X1000 (1.2-3.4); LYMPH% 9.3 % (20.5-51.1); MCH 28.9 PG (27-31); MCV 90.2 FL (81-99); MONO% 6.1 % (1.7-9.3); MPV 9.2 FL (7.4-10.4); NEUT# 7.99 X1000 (1.4-6.5); NEUT% 80.8 % (42.2-75.2); PLT 116 X1000 (130-400); RBC 2.56 XMIL (4.7-6.1); WBC 9.89 X1000 (4.8-10.8)
[2019-08-24 07:31] LABS: ALB/GLOB RATIO 1.4; ALBUMIN 2.8 g/dL (3.5-5.0); CALCIUM 7.2 mg/dL (8.8-10.2); MAGNESIUM 1.5 mg/dL (1.5-2.7); POTASSIUM 3.4 mmol/L (3.5-5.1); TOTAL BILIRUBIN 0.17 mg/dL (0.20-1.00); TOTAL PROTEIN 4.8 g/dL (6.3-8.3)
[2019-08-24 08:00] LABS: CREATININE 10.2 mg/dL (0.7-1.2)
[2019-08-24] MEDS ORDERED: NS 2,000 ML MISC PRN (10:20)
[2019-08-24] MEDS ORDERED: NS 1,000 ML IV PRN (10:20)
[2019-08-24] MEDS ORDERED: HEPARIN IV PRN ×2 (10:20)
[2019-08-24] MEDS ORDERED: TYLENOL PO PRN (10:20)
[2019-08-24] MEDS: SODIUM BICARBONATE PO SCH ×2 (12:14→20:41)
[2019-08-24] MEDS: COREG PO SCH ×2 (12:14→21:00)
[2019-08-24] MEDS: NORVASC PO SCH ×2 (12:14→20:41)
[2019-08-24] MEDS: REGLAN PO SCH ×3 (12:14→20:41)
[2019-08-24] MEDS: TUMS EXTRA STRENGTH PO SCH ×2 (12:15→18:08)
[2019-08-24] MEDS ORDERED: DIPRIVAN 1% ONE (12:57)
[2019-08-24] MEDS ORDERED: XYLOCAINE-MPF 2% ONE ×2 (12:58→13:53)
[2019-08-24] MEDS ORDERED: FENTANYL ONE (12:58)
[2019-08-24] MEDS ORDERED: SODIUM CHLORIDE 0.9% 20 ML ONE (13:16)
[2019-08-24] MEDS ORDERED: NEO-SYNEPHRINE ONE (13:16)
--- NOTE | 2019-08-24 13:16 | NEPHROLOGY CONSULTATION ---
DATE: 08/24/2019 REASON FOR CONSULTATION: CKD stage 5. HISTORY OF PRESENT ILLNESS: Mr. Patel is a 39-year-old man who is known to us from his recent admission to the hospital. He has stage 5 chronic kidney disease secondary to diabetes complicated by volume overload. I offered him dialysis during his last admission but he left without accepting treatment. He went home but had worsening shortness of breath, weakness, fatigue, swelling and therefore returned to the hospital. He is now interested in proceeding with renal replacement therapy. PAST MEDICAL HISTORY: See previous. HOME MEDICATIONS: Include carvedilol, amlodipine, calcium carbonate, omeprazole, hydralazine, sodium bicarbonate, metoclopramide. ALLERGIES: None. SOCIAL HISTORY: He lives alone in the [facility]. FAMILY HISTORY: Noncontributory. REVIEW OF SYSTEMS: Noncontributory. PHYSICAL EXAMINATION: Vital Signs: Blood pressure 158/71, heart rate 80, respirations 19, afebrile. General: No acute distress. Skin: Warm and dry. Neck: Neck veins are not appreciated. Heart: Regular. No rubs. Lungs: Equal. No crackles. Abdomen: Soft. Bowel sounds present. Extremities: 3+ edema. No clubbing or cyanosis. IMPRESSION: Chronic kidney disease stage 5 complicated by moderate metabolic acidosis and significant volume overload. He has been seen by Dr. Mora who will take him to the operating room today for placement of a tunneled dialysis catheter. His initial dialysis treatment will be for 2 hours using a 200 blood flow, and 4K bath with a goal of 1 L ultrafiltration. Dialyze again tomorrow as appropriate. cc: Main Lopez MD
[2019-08-24] MEDS ORDERED: ROBINUL ONE (13:18)
[2019-08-24] MEDS ORDERED: XYLOCAINE 1%/EPI 1:100,000 ONE (13:30)
[2019-08-24] MEDS ORDERED: NS 250 ML ONE (13:31)
[2019-08-24] MEDS ORDERED: KEFZOL 1 GM/D5W 1 GM/50 ML IVPB ONE (13:36)
--- NOTE | 2019-08-24 15:54 | Diag Imaging Result Doc PS360 ---
EXAM: CHEST-PORTABLE HISTORY: post Vas Cath TECHNIQUE: Single view COMPARISON: 08/23/2019 FINDINGS: The lungs are well expanded. There is a right jugular catheter. No pneumothorax. The heart is mildly prominent. The vessels are not distended. There are no infiltrates. No effusion identified. IMPRESSION: No postprocedural pneumothorax Electronically signed by Zaheer Prado 08/24/2019 3:52 PM
--- NOTE | 2019-08-24 17:52 | PROGRESS NOTE ---
DATE: 08/24/2019 SUBJECTIVE: This patient is resting comfortably on the bed. He is getting dialysis at this moment. He is not complaining of chest pain or shortness of breath. A Vas-Cath for dialysis has been placed and is working fine. He has fluid overload and acidosis, we will monitor this patient closely. OBJECTIVE: Vital Signs: Temperature 97.8 degrees, pulse 78, respiratory rate 18, blood pressure 149/75, oxygen saturation 96 on room air. HEENT: Head normocephalic. No trauma. PERRLA. Neck: Supple. No JVD. No masses. Central trachea. Chest: Clear to auscultation. Some crepitus at the bases. Abdomen: Soft, nontender, nondistended. No hepatosplenomegaly. Extremities: He has right lower extremity amputation, and 3+ left lower extremity edema all the way up to the thigh and probably abdominal wall. Neurological: The patient is awake, alert, he is oriented. No focal deficits. LABORATORY: WBC 9.8, hemoglobin 7.4, hematocrit 23.1, platelets 116,000. Sodium 139, potassium 3.4, chloride 100, bicarbonate 22, BUN 84, creatinine 10.2, glucose 85, calcium 7.2, albumin 2.8. ASSESSMENT AND PLAN: 1. Stage 5 chronic kidney disease complicated with metabolic acidosis and fluid overload. This patient at this moment is getting dialysis. Today he also had a tunneled dialysis catheter that is working fine. Hopefully, he will be dialyzed today and also tomorrow. I do believe this patient will be discharged if everything is okay in 48 to 72 hours. 2. Hypertension. I will monitor for now, and I will continue with his home medication, including amlodipine and hydralazine. 3. Type 2 diabetes, I will check a hemoglobin A1c. I will continue with the same management for now a sliding scale insulin and pattern of blood sugar. His blood sugar has been stable. cc: Homero Heller MD
[2019-08-25] MEDS: APRESOLINE PO SCH ×3 (05:00→21:22)
[2019-08-25] MEDS: HUMULIN R SUBQ SCH ×4 (06:16→21:21)
[2019-08-25] MEDS: PRILOSEC PO SCH ×2 (06:19→16:54)
[2019-08-25 06:32] LABS: BASO# 0.02 X1000 (0.0-0.2); BASO% 0.2 % (0.0-0.8); EOS# 0.32 X1000 (0.0-0.7); EOS% 3.7 % (0.0-10.0); HEMATOCRIT 22.9 % (42.0-52.0); HEMOGLOBIN 7.2 g/dL (14.0-18.0); LYMPH# 0.82 X1000 (1.2-3.4); LYMPH% 9.5 % (20.5-51.1); MCH 28.5 PG (27-31); MCHC 31.4 g/dL (33-37); MCV 90.5 FL (81-99); MONO# 0.71 X1000 (0.11-0.59); MONO% 8.2 % (1.7-9.3); MPV 9.2 FL (7.4-10.4); NEUT# 6.74 X1000 (1.4-6.5); NEUT% 78.4 % (42.2-75.2); PLT 117 X1000 (130-400); RBC 2.53 XMIL (4.7-6.1); RDW 13.1 % (11.5-14.5); WBC 8.61 X1000 (4.8-10.8)
[2019-08-25 07:03] LABS: ALB/GLOB RATIO 1.4; ALBUMIN 2.5 g/dL (3.5-5.0); CREATININE 8.6 mg/dL (0.7-1.2); MAGNESIUM 1.5 mg/dL (1.5-2.7); POTASSIUM 3.2 mmol/L (3.5-5.1); TOTAL BILIRUBIN 0.15 mg/dL (0.20-1.00); TOTAL PROTEIN 4.3 g/dL (6.3-8.3)
[2019-08-25 07:04] LABS: CALCIUM 6.7 mg/dL (8.8-10.2)
[2019-08-25] MEDS ORDERED: NS 1,000 ML IV PRN (07:14)
[2019-08-25] MEDS ORDERED: TYLENOL PO PRN (07:14)
[2019-08-25] MEDS ORDERED: NS 2,000 ML MISC PRN (07:14)
[2019-08-25 07:20] LABS: HEMOGLOBIN A1C 5.3 % (4.8-6.0)
[2019-08-25] MEDS: SODIUM BICARBONATE PO SCH ×2 (11:15→21:22)
[2019-08-25] MEDS: TUMS EXTRA STRENGTH PO SCH ×3 (11:15→16:54)
[2019-08-25] MEDS: NORVASC PO SCH ×2 (11:15→21:22)
[2019-08-25] MEDS: REGLAN PO SCH ×3 (11:16→21:22)
[2019-08-25] MEDS: COREG PO SCH ×2 (11:16→21:22)
--- NOTE | 2019-08-25 11:42 | PROGRESS NOTE ---
DATE: 08/25/2019 SUBJECTIVE: The patient is resting comfortably in bed. He is getting dialysis at this moment. He has no complaints. No chest pain or shortness of breath. OBJECTIVE: Vital Signs: Temperature 97.3 degrees, pulse 76, respiratory rate 17, blood pressure 143/67, oxygen saturation 97% on room air. HEENT: Head normocephalic, no trauma. PERRLA. Neck: Supple. No JVD. No masses. Central trachea. Chest: Clear to auscultation, some crepitus at the bases. Abdomen: Soft, nontender, nondistended. No hepatosplenomegaly. Extremities: He has a right lower extremity amputation and 2 to 3+ left lower extremity edema all the way up to the thigh. Neurological: Patient is awake, alert, he is oriented. LABORATORY: WBC 8.6, hemoglobin 7.2, hematocrit 22.9, platelets 117,000. Sodium 139, potassium 3.2, chloride 101, bicarbonate 21, BUN 60, creatinine 8.6, glucose 97, calcium 6.7, albumin 2.5. ASSESSMENT AND PLAN: 1. Stage 5 CKD, complicated with metabolic acidosis and fluid overload. At this moment this patient is getting dialysis, he seems to be tolerating that well. Probably, he will get dialysis on Tuesday again and then he will be discharged. 2. Hypertension. We will monitor for now. Continue with his treatment. 3. Type 2 diabetes. His hemoglobin A1c is 5.3, which is good, so we will continue with same management for now. cc: Homero Heller MD
--- NOTE | 2019-08-25 12:08 | NEPHROLOGY PROGRESS NOTE ---
DATE: 08/25/2019 SUBJECTIVE: He states at least that he is not worse. No shortness of breath, nausea or vomiting. Swelling is about the same. OBJECTIVE: Vital Signs: Blood pressure 143/67, heart rate 76, respirations 17, afebrile. General: Lying in a chair at 45 degrees in no distress. Skin: Pale and dry. Conjunctivae are pink. Neck: Neck veins are not appreciated. Heart: Regular. No rubs. Lungs: Equal. No crackles. Abdomen: Soft, nontender. Bowel sounds present. Extremities: 2+ edema. No clubbing or cyanosis. IMPRESSION AND PLAN: Chronic kidney disease stage 5. Initiated hemodialysis yesterday. Goal of 4 L ultrafiltration today. On 3K bath. Next treatment will be Tuesday. cc: Main Lopez MD
[2019-08-25 14:27] LABS: HEPATITIS PROFILE ACUTE SEE COMMENTS
[2019-08-26] MEDS: PRILOSEC PO SCH ×3 (05:51→17:04)
[2019-08-26] MEDS: APRESOLINE PO SCH ×3 (05:52→20:08)
[2019-08-26] MEDS: HUMULIN R SUBQ SCH ×4 (06:04→22:03)
[2019-08-26 07:14] LABS: CALCIUM 7.1 mg/dL (8.8-10.2); POTASSIUM 3.3 mmol/L (3.5-5.1)
[2019-08-26 07:16] LABS: CREATININE 5.8 mg/dL (0.7-1.2)
[2019-08-26 07:17] LABS: BASO# 0.02 X1000 (0.0-0.2); BASO% 0.3 % (0.0-0.8); HEMATOCRIT 22.5 % (42.0-52.0); LYMPH# 0.86 X1000 (1.2-3.4); LYMPH% 11.4 % (20.5-51.1); MCH 28.9 PG (27-31); MCHC 31.1 g/dL (33-37); MONO% 9.3 % (1.7-9.3); MPV 9.5 FL (7.4-10.4); NEUT# 5.67 X1000 (1.4-6.5); PLT 113 X1000 (130-400); RBC 2.42 XMIL (4.7-6.1); RDW 13.3 % (11.5-14.5); WBC 7.55 X1000 (4.8-10.8)
[2019-08-26 07:33] LABS: FERRITIN 313 ng/mL (30-400)
[2019-08-26] MEDS: COREG PO SCH ×2 (10:05→20:08)
[2019-08-26] MEDS: NORVASC PO SCH ×2 (10:05→20:08)
[2019-08-26] MEDS: SODIUM BICARBONATE PO SCH ×2 (10:05→20:08)
[2019-08-26] MEDS: REGLAN PO SCH ×3 (10:05→20:08)
[2019-08-26] MEDS: TUMS EXTRA STRENGTH PO SCH ×3 (10:06→17:04)
--- NOTE | 2019-08-26 13:28 | PROGRESS NOTE ---
DATE: 08/26/2019 SUBJECTIVE: The patient is resting comfortably in bed. Vital signs are stable. Hemoglobin dropped from 7.2 to 7. Hopefully, he will get dialysis tomorrow. Probably, he will be getting some blood tomorrow as well. I will let the nephrology department to decide that tomorrow if he needs blood. OBJECTIVE: Vital Signs: Temperature 98.6 degrees, pulse 85, respiratory rate 16, blood pressure 150/66, oxygen saturation 95% on room air. HEENT: Head normocephalic. No trauma. PERRLA. Neck: Supple. No JVD. No masses. Central trachea. Chest: Clear to auscultation. Some crepitus at the bases. Abdomen: Soft, nontender, nondistended. No hepatosplenomegaly. Extremities: He has a right lower extremity amputation. There is 2+ left lower extremity edema all the way up to the thigh. Neurological Examination: The patient is awake, alert, oriented. Laboratory: WBCs 7.5, hemoglobin 7, hematocrit 22.5, platelets 113,000. Sodium 141, potassium 3.3, chloride 102, bicarbonate 26, BUN 33, creatinine 5.8, glucose 110, calcium 7.1. ASSESSMENT AND PLAN: 1. Stage 5 chronic kidney disease complicated with metabolic acidosis and fluid overload, now on hemodialysis. Probably, he will get dialysis tomorrow and then hopefully he will be discharged if nephrology department is okay with that. 2. Anemia. Hemoglobin is 7 but he is not having symptoms so I will go ahead and recheck his hemoglobin in the morning. I do not think he is having an active bleed. Probably, he will need some blood during dialysis tomorrow. 3. Hypertension. We will continue to monitor for now. Continue with the same treatment. 4. Type 2 diabetes. Hemoglobin A1c 5.3, which is good. We will continue with the same management. cc: Homero Heller MD
--- NOTE | 2019-08-27 05:26 | OPERATIVE NOTE ---
PROCEDURE DATE: 08/24/2019 PREOPERATIVE DIAGNOSIS: Chronic kidney disease now progressing to end-stage renal disease requiring hemodialysis access. POSTOP DIAGNOSIS: Chronic kidney disease now progressing to end-stage renal disease requiring hemodialysis access. PROCEDURE: Ultrasound and fluoroscopic-guided right internal jugular vein, tunneled hemodialysis catheter placement. SURGEON: Loc Mora MD. SHOP ASSISTANT: None. ANESTHESIA: General tracheal. FINDINGS: Ultrasound showed a good caliber right internal jugular vein. Fluoroscopy showed the catheter in good position. COMPLICATIONS: None at time of dictation. ESTIMATED BLOOD LOSS: 10 mL. SPECIMENS REMOVED: None. BRIEF HISTORY: A 39-year-old gentleman with chronic kidney disease that has progressed and needed dialysis access. The risks, benefits, and alternatives of the procedure were discussed for placement of dialysis catheter and documented in the note. Risks, including but not limited to bleeding, infection, risk of anesthesia, risk of pneumothorax, risk of infection were discussed. All questions answered. DESCRIPTION OF PROCEDURE: After informed consent was obtained, patient brought to the operative theatre, transferred to the operative table, placed in supine position. General tracheal anesthesia was then performed without complication. A formal time-out was then performed, confirming patient and procedure. All in agreement. At that time, attention turned to the right neck. It was prepped and draped in sterile fashion. After a time-out, we used the ultrasound to identify the right internal jugular vein. Under local anesthetic, I was able to cannulate the right internal jugular vein, seen with a wire going superior vena cava under fluoroscopy. We then tunneled the catheter from the right chest wall to the right neck, exchanged the wire in typical Seldinger technique to place the tip of the catheter in superior vena cava. The tunneled catheter was in good position. It was not kinked. It aspirated and flushed easily. We secured it to the skin in the standard fashion. The patient tolerated the procedure well and was transferred back to the recovery room. A chest x-ray is pending. cc: Loc Moar MD
[2019-08-27] MEDS: APRESOLINE PO SCH ×2 (05:43→12:03)
[2019-08-27] MEDS: PRILOSEC PO SCH ×2 (05:43→06:00)
[2019-08-27] MEDS: HUMULIN R SUBQ SCH ×2 (06:00→12:04)
[2019-08-27] MEDS ORDERED: HEPARIN IV PRN (07:12)
[2019-08-27] MEDS ORDERED: NS 2,000 ML MISC PRN (07:12)
[2019-08-27 07:18] LABS: HEMATOCRIT 22.6 % (42.0-52.0); HEMOGLOBIN 7.1 g/dL (14.0-18.0)
[2019-08-27 07:38] LABS: CREATININE 6.9 mg/dL (0.7-1.2); PHOSPHORUS 4.5 mg/dL (2.7-4.5); POTASSIUM 3.3 mmol/L (3.5-5.1)
[2019-08-27] MEDS: TUMS EXTRA STRENGTH PO SCH ×2 (08:03→12:03)
[2019-08-27 11:27] VITALS: BP 154/78
[2019-08-27] MEDS: REGLAN PO SCH ×2 (12:03→13:52)
[2019-08-27] MEDS: NORVASC PO SCH (12:03)
[2019-08-27] MEDS: COREG PO SCH (12:04)
[2019-08-27] MEDS: SODIUM BICARBONATE PO SCH (12:04)
--- NOTE | 2019-08-27 15:07 | NEPHROLOGY PROGRESS NOTE ---
DATE: 08/27/2019 SUBJECTIVE: He is anticipating discharge. He is standing up, ambulatory. No shortness of breath. On room air. OBJECTIVE: Vital Signs: Blood pressure 174/85, heart rate 83, respiration 18, afebrile. General: No acute distress. Skin: Warm and dry. Neck: Neck veins are not visible in the erect position. Heart: Regular. No rubs. Lungs: Equal. No crackles. Abdomen: Soft, nontender. Extremities: Trace edema. No clubbing or cyanosis. IMPRESSION: Chronic kidney disease 5D. He had his routine dialysis treatment today with 4 L ultrafiltration. He has a scheduled outpatient dialysis plan and I will see him at that time. cc: Main Lopez MD
--- NOTE | 2019-08-27 15:59 | DISCHARGE SUMMARY ---
ADMISSION DATE: 08/23/2019 DISCHARGE DATE: 08/27/2019 DISCHARGE DIAGNOSES: 1. Stage 5 chronic kidney disease complicated with metabolic acidosis and fluid overload, now on hemodialysis. 2. Anemia. 3. Hypertension. 4. Type 2 diabetes. PROCEDURES PERFORMED: 1. Chest x-ray dated 08/23/2019. Impression; cardiomegaly but no pulmonary edema. 2. Chest x-ray dated 08/24/2019. Impression; no post procedural pneumothorax. HOSPITAL COURSE: A 39-year-old male with a with multiple comorbidities including uncontrolled hypertension, diabetes, anemia and CKD, apparently nephrotic syndrome, discharged on 08/21/2019 and readmitted on 08/23/2019 due to increased shortness of breath and swelling, likely anasarca. Apparently, he has been recommended to start dialysis before but he refused, but now a dialysis catheter has been placed by the Surgery Department and we have started dialysis on this patient. He received a total of 3 hemodialysis during this hospitalization and we had a negative balance of 7.1 L totally. He seems to be stable to go home. I discussed the case with the Nephrology Department. He will have dialysis on Tuesday, and Tuesday at [facility]. Instructions were given to the patient. PHYSICAL EXAMINATION: Vital Signs: Temperature 99.1 degrees, pulse 79, respiratory rate 16, blood pressure 147/68. Oxygen saturation 95% on room air. HEENT: Head normocephalic. No trauma. PERRLA. Neck: Supple. No JVD. No masses. Central trachea. Chest: Clear to auscultation some crepitus at the bases. Abdomen: Soft, nontender, nondistended. No hepatosplenomegaly. Extremities: 2+ lower extremity edema. No clubbing. No cyanosis. Neurological: The patient is awake, alert. He is oriented x3. No focal deficits. LABORATORY: Hemoglobin 7.1, hematocrit 22.6. Sodium 140, potassium 3.3, chloride 101, bicarbonate 25, BUN 33, creatinine 6.9, glucose 107, calcium 7, phosphorus 4.5. DISCHARGE MEDICATIONS: Amlodipine 5 mg p.o. b.i.d., calcium carbonate 750 mg p.o. t.i.d., carvedilol 12.5 mg p.o. q.12 hours, hydralazine 50 mg p.o. every 8 hours, Reglan 5 mg p.o. t.i.d., omeprazole 40 mg p.o. b.i.d., and sodium bicarbonate 1300 mg p.o. b.i.d. FOLLOWUP: Follow up with his primary care doctor in 1 week. Follow up with Dr. Lopez with dialysis Tuesday, and Tuesday, instructions were given by the dialysis team. cc: Homero Heller MD
== END 2019-08-27 14:30 | disposition home or self-care (01) | DRG 640 ==
LOC: ED 14:44 → EDIPHOLD 18:44 → SUATTDRO 18:44 → 3N 20:49
PROVIDERS: ATTEND Internal Medicine